=== PATIENT | male | born 1955 | race Caucasian/White ===

== ENCOUNTER → 2018-12-17 15:08 | Outpatient (CLI) | payer MEDICARE, SELFPAY ==
[2018-07-23 14:31] VITALS: BMI 35.0
[2018-12-17 16:21] LABS: Absolute Neutrophil Count 4.1 X10^3/uL (2.0-7.7); Basophil# 0.02 X10^3/uL; Basophil% 0.3 % (0-1); Eosinophil# 0.11 X10^3/uL; Eosinophils% 1.8 % (0-5); Hematocrit 46.6 % (40-54); Hemoglobin 16.5 g/dl (13.0-16.5); Lymphocyte % 21.2 % (19-41); Mean Corp Hgb Conc 35.4 g/gl (32-36); Mean Corpuscular Hgb 33.2 pg (27.0-32.0); Mean Corpuscular Volume 93.8 fL (80-94); Monocyte% 9.8 % (0-10); Neutrophil # 4.07 X10^3/uL (2.7-7.7); Neutrophil % 66.6 % (47-70); Platelet Count 232 K/mm3 (150-450); RBC Distribution Width SD 40.2 fl (35.1-43.9); Red Blood Count 4.97 M/mm3 (4.6-6.2); White Blood Count 6.1 K/mm3 (4.4-11.0)
[2018-12-17 16:27] LABS: POSITIVE COUNT NO; POSITIVE DIFFERENTIAL NO; POSITIVE MORPHOLOGY NO
== END ==
PROVIDERS: Family Provider Family Medicine; PCP Family Medicine; Referring Provider Family Medicine; Visit Provider Family Medicine
DX: E03.9 Hypothyroidism, unspecified (principal); R68.82 Decreased libido
CPT/HCPCS: 36415; 84403; 85025

== ENCOUNTER 2020-01-25 15:41 | Emergency (ER) | payer MEDICARE, SELFPAY ==
[2019-09-24 13:54] VITALS: BMI 33.7
[2020-01-25 15:42] VITALS: BP 131/81; PULSE 77; RESP 17; TEMP 36.5; O2SAT 96; BMI 33.7
--- NOTE | 2020-01-25 16:07 | EKG12_ITS ---
Test Reason : SOB Blood Pressure : / mmHG Vent. Rate : 070 BPM Atrial Rate : 070 BPM P-R Int : 148 ms QRS Dur : 080 ms QT Int : 392 ms P-R-T Axes : 041 020 041 degrees QTc Int : 423 ms Normal sinus rhythm Normal ECG Confirmed by KRISTINE LUNA MD ([id number]), editorial cartoonist ROB RIVERA ([id number]) on 01/29/2020 9:06:19 AM Referred By: MAXIMUS Confirmed By:KRISTINE LUNA MD
[2020-01-25 16:16] VITALS: BP 130/77; PULSE 70; RESP 18; O2SAT 95; O2SAT 97
[2020-01-25 16:32] LABS: Absolute Lymphocyte Count 1.06 X10^3/uL (0.83-4.51); Absolute Neutrophil Count 3.6 X10^3/uL (2.0-7.7); Basophil# 0.04 X10^3/uL; Basophil% 0.7 % (0-1); Eosinophil# 0.15 X10^3/uL; Eosinophils% 2.7 % (0-5); Hematocrit 43.1 % (40-54); Hemoglobin 15.2 g/dL (13.0-16.5); Lymphocyte # 1.06 X10^3/ul (4.0); Lymphocyte % 19.2 % (19-41); Mean Corp Hgb Conc 35.3 g/dL (32-36); Mean Corpuscular Hgb 32.6 pg (27.0-32.0); Mean Corpuscular Volume 92.5 fL (80-94); Mean Platelet Vol. 8.8 fl (6.2-12.0); Monocyte# 0.61 X10^3/uL; NRBC Flagged by Analyzer 0 % (0-5); Neutrophil # 3.62 X10^3/uL (2.7-7.7); Neutrophil % 65.5 % (47-70); Platelet Count 207 K/mm3 (150-450); RBC Distribution Width CV 11.7 % (11.6-14.6); Red Blood Count 4.66 M/mm3 (4.6-6.2); White Blood Count 5.5 K/mm3 (4.4-11.0)
--- NOTE | 2020-01-25 16:40 | RAD_ITS ---
STUDY: X-RAY CHEST REASON FOR EXAM: Male, 64 years old. patient complains of shortness of breath and weakness TECHNIQUE: PA and lateral views of the chest. COMPARISON: 07/06/2012 FINDINGS: The lungs are clear and expanded. There is no demonstrated pleural abnormality. Normal size heart. Normal mediastinum and talon. Normal visualized pulmonary arteries. Normal visualized aortic arch and descending thoracic aorta. Normal visualized thoracic spine. Normal visualized ribs, clavicles, and shoulders. There is no demonstrated abnormality of the visualized soft tissue structures of the upper abdomen. RAD/Chest PA and Lateral IMPRESSION: Normal x-ray examination of the chest. Electronically Signed: Clarence Stark MD at 16:52 EDT Tel , Service support ,
[2020-01-25 16:48] LABS: Anion Gap 6 (5-15); BUN 22 mg/dL (7-18); BUN/Creat Ratio 14.8 RATIO (10-20); Calcium,Total 8.3 mg/dL (8.5-10.1); Chloride 106 mmol/L (98-107); Creatinine, Serum 1.49 mg/dL (0.70-1.30); EST Glomerular Filtration Rate 50 mL/min (>60); Est Glom Filt Rate - Afr Amer 61 mL/min (>60); Glucose 169 mg/dL (74-106); Potassium 4.2 mmol/L (3.5-5.1); Sodium Level 135 mmol/L (136-145)
--- NOTE | 2020-01-25 16:52 | ED.DCSUM_ITS ---
History of Present Illness Chief Complaint: Shortness of Breath Informant: Patient Onset: Yesterday Activity at onset: Exertion, Light Activity Timing: Continuous Quality: Dyspnea on exertion Current Severity: Mild Maximum Severity: Severe Worsened by: Exertion Relieved by: Rest Associated Symptoms: Negative for: Bloody Sputum, Chills, Cough, Ear pain, Fever, Green sputum, Post-nasal drainage, Rhinorrhea, Sore throat, Sweats, White sputum, Yellow sputum Chest Pain: Tightness Narrative: 64-year-old male history of fibromyalgia presents to the emergency department with dyspnea on exertion and chest tightness. It has been worsening over the last 1 week but specifically over the last 24 hours. He does not get any chest pain with exertion. He has no cough or fever. He is not lightheaded or dizzy. He denies any nausea vomiting or diarrhea. He denies any recent travel or surgery, leg pain or swelling, hemoptysis or history of DVT or PE. He is a non- smoker. He is not hypertensive or does not have hyperlipidemia history. No family history of coronary disease. PE Risk Factors: Negative for: Cancer, OCP + Smoking + > 35, Prior DVT or PE, Recent immobilization, Recent surgery, Recent travel Prior similar symptoms: No Recent Illness/Hospitalization: No Past Medical History - Allergies and Home Meds Allergies/Adverse Reactions: Allergies milk Allergy (Verified 01/25/20 15:41) Upset Stomach Primary Care Physician: Phoenix Leiva DO [Primary Care Provider] - Prior records reviewed: Yes Past Medical History: - - Fibromyalgia Surgical History: no surgical history Lives: Alone Smoking Status: Never smoker Review of Systems All systems negative except as indicated General: Denies: Chills, Fever, Malaise Eyes: Denies: Visual changes - bilaterally, Blurred Vision - bilaterally, Diplopia ENT: Denies: Rhinorrhea, Sore throat Cardiovascular: Denies: Chest pain, Palpitations, Heart racing Respiratory: Reports: Dyspnea, Dyspnea on exertion. Denies: Cough, Sputum, Orthopnea, Paroxysmal nocturnal dyspnea Gastrointestinal: Denies: Abdominal pain, Nausea, Vomiting, Diarrhea, Constipation, Melena, Hematochezia Genitourinary: Denies: Dysuria, Hematuria, Frequency Musculoskeletal: Denies: Myalgias, Arthralgias, Swelling, Extremity Pain Skin: Denies: Rash, Abscess, Abrasions, Wounds Neurological: Denies: Headache, Weakness, Parasthesia, Numbness Hematologic: Denies: Easy bruising, Easy bleeding Physical Exam Vital Signs/Narrative: Vital Signs Temp Pulse Resp BP Pulse Ox 01/25/20 16:16 70 18 130/77 H 95 01/25/20 15:42 97.7 F L 77 17 131/81 H 96 Inital Vital Signs reviewed: Yes General: Well nourished, Well developed, No Acute Distress Head: Normocephalic, Atraumatic Eyes: Perrl, EOMI ENT: Moist mucous membranes Neck: Supple, Nontender, No lymphadenopathy, No JVD Cardiovascular: Regular rate, Regular rhythm, No murmurs Respiratory: No distress, CTA bilaterally, Chest nontender Abdomen: Soft, Nontender, Nondistended, Normal bowel sounds, No masses Back: Nontender, Normal Inspection Extremities: Nontender, No edema Skin: Normal color, No rash Neurological: Alert, Oriented x3 Psychological: Normal affect, Normal Mood Diagnostic/Tx/Re-eval Chest X-Ray - ED: 2 View, Read by ED Physician, Read by Radiologist, No Acute Disease - Rhythm Strip Rhythm Strip: Sinus Rhythm Rate: 77 Ectopy: None - EKG Initial EKG Interpretation: Sinus Rhythm, No Acute Injury Pattern Prior: Unchanged With Ambulation: Asymptomatic - Medical Decision Making EKG was sinus rhythm. Rate of 70 bpm. Normal intervals. No ST segment or T wave changes. It is unchanged from his previous EKG. Patient's laboratory work-up included CBC, BMP and troponin. Unremarkable. Chest x-ray unremarkable as well. Repeat exam symptom free. Heart score is two. He has had symptoms for 1 week. Discharge for outpatient follow-up ED Disposition - Plan for ED Patient: Disposition: Home or Assisted Living Diagnosis: Dyspnea on exertion Instructions: ED Dyspnea Prescriptions: Albuterol Inhaler [Ventolin Hfa] 1 - 2 puff INHALATION Q4H PRN PRN #1 inhaler PRN Reason: Wheezing Prescription Printed Referrals: Phoenix Leiva DO [Primary Care Provider] -
[2020-01-25 17:51] VITALS: BP 130/70; PULSE 72; RESP 14; O2SAT 97
== END 2020-01-25 17:52 | disposition home or self-care (01) ==
PROVIDERS: Emergency Provider Physician Assistant Medical; PCP Family Medicine
DX: R06.09 Other forms of dyspnea (principal)
CPT/HCPCS: 71046; 80048; 84484; 85025; 93005; 99284; A4216

== ENCOUNTER → 2020-09-10 16:38 | Outpatient (CLI) | payer MEDICARE, SELFPAY ==
[2020-08-04 15:32] VITALS: BMI 33.7
[2020-09-10 18:16] LABS: Anion Gap 8 (5-15); BUN 25 mg/dL (7-18); BUN/Creat Ratio 17.1 RATIO (10-20); Calcium,Total 8.4 mg/dL (8.5-10.1); Chloride 108 mmol/L (98-107); Creatinine, Serum 1.46 mg/dL (0.70-1.30); EST Glomerular Filtration Rate 51 mL/min (>60); Est Glom Filt Rate - Afr Amer 62 mL/min (>60); Glucose 108 mg/dL (74-106); Potassium 4.5 mmol/L (3.5-5.1); Sodium Level 138 mmol/L (136-145)
== END ==
PROVIDERS: PCP Family Medicine; Referring Provider Family Medicine; Visit Provider Family Medicine
DX: R39.198 Other difficulties with micturition (principal)
CPT/HCPCS: 36415; 80048

== ENCOUNTER → 2020-09-17 14:21 | Outpatient (CLI) | payer MEDICARE, SELFPAY ==
[2020-08-04 15:32] VITALS: BMI 33.7
[2020-09-17 15:54] LABS: PSA,Total- Diagnostic 3.73 ng/mL (0.0-4.0)
== END ==
LOC: BIMLAB 14:22
PROVIDERS: PCP Family Medicine; Referring Provider Family Medicine; Visit Provider Family Medicine
DX: R39.198 Other difficulties with micturition (principal)
CPT/HCPCS: 36415; 84153

== ENCOUNTER → 2020-09-30 17:29 | Outpatient (CLI) | payer MEDICARE, SELFPAY ==
[2020-08-04 15:32] VITALS: BMI 33.7
== END ==
PROVIDERS: PCP Family Medicine; Referring Provider Nurse Practitioner Family; Visit Provider Nurse Practitioner Family
DX: R52 Pain, unspecified (principal)
CPT/HCPCS: 87635; 87804; C9803; U0003

== ENCOUNTER → 2021-01-12 15:36 | Outpatient (CLI) | payer MEDICARE, SELFPAY ==
[2021-01-12 15:00] VITALS: BMI 35.3
[2021-01-12 17:21] LABS: Vitamin D,25 Hydroxy 31.6 ng/mL
[2021-01-12 17:33] LABS: ALB/GLOB Ratio 1.1 RATIO (0.9-2.4); AST(SGOT) 30 U/L (15-37); Alanine Aminotransfer ALT/SGPT 57 U/L (16-61); Albumin, Serum 3.8 g/dL (3.2-5.0); Alkaline Phosphatase 95 U/L (45-117); Anion Gap 6 (5-15); BUN 23 mg/dL (7-18); BUN/Creat Ratio 14.6 RATIO (10-20); Calcium,Total 9.1 mg/dL (8.5-10.1); Chloride 106 mmol/L (98-107); Cholesterol 192 mg/dL (200); Creatinine, Serum 1.58 mg/dL (0.70-1.30); EST Glomerular Filtration Rate 47 mL/min (>60); Est Glom Filt Rate - Afr Amer 57 mL/min (>60); Globulin 3.4 g/dL (2.2-4.2); Glucose 185 mg/dL (74-106); High Density Lipoprotein 33 mg/dL; Potassium 4.5 mmol/L (3.5-5.1); Protein, Total 7.2 g/dL (6.4-8.2); Sodium Level 137 mmol/L (136-145); Triglycerides 524 mg/dL
== END ==
PROVIDERS: PCP Family Medicine; Referring Provider Family Medicine; Visit Provider Family Medicine
DX: E03.9 Hypothyroidism, unspecified (principal); F32.9 Major depressive disorder, single episode, unspecified; E20.9 Hypoparathyroidism, unspecified
CPT/HCPCS: 36415; 80053; 80061; 82306

== ENCOUNTER → 2021-01-21 15:52 | Outpatient (CLI) | payer MEDICARE, SELFPAY ==
[2021-01-12 15:00] VITALS: BMI 35.3
[2021-01-21 17:04] LABS: Hemoglobin A1c 5.4 % (3.8-5.6)
== END ==
PROVIDERS: PCP Family Medicine; Visit Provider Family Medicine
DX: R73.09 Other abnormal glucose (principal)
CPT/HCPCS: 36415; 83036

== ENCOUNTER → 2021-09-07 | Outpatient (CLI) | payer MEDICARE, SELFPAY | END | disposition home or self-care (01) | LOC: LABSPEC 14:27 | PROVIDERS: PCP Family Medicine; Referring Provider Nurse Practitioner Family; Visit Provider Nurse Practitioner Family | DX: R52 Pain, unspecified (principal) | CPT/HCPCS: 87635; U0005; U0003 ==

== ENCOUNTER 2021-12-06 14:41 | Outpatient (CLI) | payer MEDICARE, SELFPAY ==
--- NOTE | 2021-12-06 14:53 | ECHOCS_ITS ---
Reason For Study: DYSPNEA Procedure This was a 2D Doppler, Color Flow transthoracic echocardiogram. The study was technically difficult. Contrast injection was performed. Exam performed in department. Left Ventricle Normal LV size. Left ventricular systolic function is normal. The estimated ejection fraction is 55 %. Diastolic function is indeterminate. No regional wall motion abnormalities noted. Right Ventricle Normal RV size. Normal systolic function. Atria Normal left atrium. Normal right atrium. No doppler evidence for ASD. Mitral Valve There is no mitral annular calcification. Normal mitral valve. Mild (1+) mitral valve insufficiency. Tricuspid Valve Normal tricuspid valve. Mild tricuspid valve insufficiency. Right ventricular systolic pressure estimated to be 29 mmHg. Aortic Valve Trisinus/trileaflet aortic valve. Mild focal aortic valve thickening. Pulmonic Valve The pulmonic valve is not well visualized. Great Vessels Normal sized aortic root. Pericardium/Pleural No pericardial effusion. Medication 22 gauge I.V. with prn adaptor inserted into right arm. Diluted definity 4.0ml given slow IV push to enhance endocardial definition. MMode/2D Measurements & Calculations LVIDd: 4.1 cm IVSd: 0.82 cm Ao root diam: 3.8 cm LVIDs: 2.9 cm LVPWd: 0.91 cm RVDd: 3.0 cm FS: 29.4 % LAV(MOD-bp): 35.5 ml LA A4 area: 15.2 cm2 LA dimension(2D): 3.9 cm LAV(MOD-bp) Indexed: 17.4 ml/m2 LAV(MOD-sp2): 30.4 ml LAV(MOD-sp4): 34.0 ml RA A4 area: 10.9 cm2 Doppler Measurements & Calculations MV E max marcin: 91.4 cm/sec Lat Peak E' Marcin: 9.0 cm/sec Med Peak E' Marcin: 5.7 cm/sec MV A max marcin: 98.6 cm/sec E/E' lat: 10.1 E/E' med: 15.9 MV E/A: 0.93 Ao V2 max: 136.9 cm/sec LV V1 max: 100.0 cm/sec TR max marcin: 245.4 cm/sec Ao max P.5 mmHg LV V1 max P.0 mmHg TR max P.1 mmHg ECHO/Echo Complete W/ Contrast Interpretation Summary The study was technically difficult. Contrast injection was performed. Left ventricular systolic function is normal. The estimated ejection fraction is 55 %. Mild (1+) mitral valve insufficiency. Mild tricuspid valve insufficiency. Mild focal aortic valve thickening. Right ventricular systolic pressure estimated to be 29 mmHg. Diastolic function is indeterminate. Ordering Physician: Gavin Ortiz Referring Physician: ABIOLA LADD Performed By: Bibiana Edmonds, ROBERT, RVT
== END 2021-12-06 23:59 | disposition short-term general hospital (02) ==
PROVIDERS: PCP Family Medicine; Referring Provider Nurse Practitioner Family; Visit Provider Nurse Practitioner Family
DX: R06.00 Dyspnea, unspecified (principal)
CPT/HCPCS: 93306; Q9957; A4216; C8929

== ENCOUNTER → 2022-05-05 | Outpatient (CLI) | payer MEDICARE, SELFPAY ==
[2022-05-05 16:53] LABS: ALB/GLOB Ratio 1.2 RATIO (0.9-2.4); AST(SGOT) 28 U/L (15-37); Alanine Aminotransfer ALT/SGPT 39 U/L (16-61); Albumin, Serum 3.9 g/dL (3.2-5.0); Alkaline Phosphatase 99 U/L (45-117); Anion Gap 7 (5-15); BUN 16 mg/dL (7-18); BUN/Creat Ratio 10.5 RATIO (10-20); Calcium,Total 8.8 mg/dL (8.5-10.1); Chloride 104 mmol/L (98-107); Creatinine, Serum 1.52 mg/dL (0.70-1.30); EST Glomerular Filtration Rate 49 mL/min (>60); Est Glom Filt Rate - Afr Amer 59 mL/min (>60); Globulin 3.2 g/dL (2.2-4.2); Glucose 125 mg/dL (74-106); Potassium 4.6 mmol/L (3.5-5.1); Protein, Total 7.1 g/dL (6.4-8.2); Sodium Level 137 mmol/L (136-145)
[2022-05-05 16:57] LABS: Absolute Lymphocyte Count 1.49 X10^3/uL (0.83-4.51); Absolute Neutrophil Count 4.4 X10^3/uL (2.0-7.7); Basophil# 0.05 X10^3/uL; Basophil% 0.7 % (0-1); Eosinophil# 0.26 X10^3/uL; Eosinophils% 3.7 % (0-5); Hematocrit 47.4 % (40-54); Hemoglobin 16.4 g/dL (13.0-16.5); Lymphocyte # 1.49 X10^3/ul (0.83-4.51); Lymphocyte % 21.2 % (19-41); Mean Corp Hgb Conc 34.6 g/dL (32-36); Mean Corpuscular Volume 92.4 fL (80-94); Mean Platelet Vol. 9.1 fl (6.2-12.0); Monocyte# 0.77 X10^3/uL; NRBC Flagged by Analyzer 0 % (0-5); Neutrophil # 4.42 X10^3/uL (2.7-7.7); Platelet Count 253 K/mm3 (150-450); RBC Distribution Width CV 11.8 % (11.6-14.6); RBC Distribution Width SD 39.8 fl (35.1-43.9); Red Blood Count 5.13 M/mm3 (4.6-6.2)
[2022-05-05 17:48] LABS: Cholesterol 177 mg/dL (200); High Density Lipoprotein 33 mg/dL; PSA,Total - Annual Screen 3.46 ng/mL (0.00-4.00); Thyroid Stim Hormone (TSH) 2.85 uIU/mL (0.358-3.74); Triglycerides 389 mg/dL; Very Low Density Lipoprotein 78 mg/dL (5-40)
== END | disposition home or self-care (01) ==
LOC: BIMLAB 15:31
PROVIDERS: Nurse Practitioner Family; PCP Family Medicine; Referring Provider Family Medicine; Visit Provider Family Medicine
DX: C44.91 Basal cell carcinoma of skin, unspecified (principal); R06.00 Dyspnea, unspecified; R53.83 Other fatigue; N18.2 Chronic kidney disease, stage 2 (mild); E03.9 Hypothyroidism, unspecified; Z12.5 Encounter for screening for malignant neoplasm of prostate; F32.9 Major depressive disorder, single episode, unspecified
CPT/HCPCS: 36415; 80053; 80061; 84153; 84443; 85025; G0103

== ENCOUNTER → 2024-07-07 | Outpatient (CLI) | payer MEDICARE, SELFPAY ==
--- NOTE | 2024-07-07 12:01 | EKG12_ITS ---
Test Reason : PRE OP Blood Pressure : / mmHG Vent. Rate : 089 BPM Atrial Rate : 089 BPM P-R Int : 136 ms QRS Dur : 076 ms QT Int : 350 ms P-R-T Axes : 036 010 050 degrees QTc Int : 425 ms Sinus rhythm with occasional Premature ventricular complexes Otherwise normal ECG Confirmed by Mauro Flores ([id number]), marketing editor HEMA LANGE ([id number]) on 07/07/2024 1:54:46 PM Referred By: Michael Mckeon Confirmed By:Mauro Flores
[2024-07-07 12:55] LABS: Hematocrit 46.5 % (40-54); Hemoglobin 16.1 g/dL (13.0-16.5); Mean Corp Hgb Conc 34.6 g/dL (32-36); Mean Corpuscular Hgb 30.7 pg (27.0-32.0); Mean Corpuscular Volume 88.7 fL (80-94); Mean Platelet Vol. 8.9 fl (6.2-12.0); Platelet Count 250 K/mm3 (150-450); RBC Distribution Width SD 38.8 fl (35.1-43.9); Red Blood Count 5.24 M/mm3 (4.6-6.2); White Blood Count 7.3 K/mm3 (4.4-11.0)
[2024-07-07 13:26] LABS: Anion Gap 7 (5-15); BUN 22 mg/dL (7-18); BUN/Creat Ratio 13.8 RATIO (10-20); Calcium,Total 9.3 mg/dL (8.5-10.1); Chloride 108 mmol/L (98-107); Creatinine, Serum 1.59 mg/dL (0.70-1.30); EST Glomerular Filtration Rate 46 mL/min (>60); Est Glom Filt Rate - Afr Amer 56 mL/min (>60); Glucose 114 mg/dL (74-106); Potassium 4.2 mmol/L (3.5-5.1); Sodium Level 139 mmol/L (136-145)
== END | disposition home or self-care (01) ==
PROVIDERS: PCP Family Medicine; Referring Provider Otolaryngology; Visit Provider Otolaryngology
DX: Z01.810 Encounter for preprocedural cardiovascular examination (principal); Z01.812 Encounter for preprocedural laboratory examination
CPT/HCPCS: 36415; 80048; 84403; 85027; 93005

== ENCOUNTER → 2025-04-22 | Outpatient (CLI) | payer MEDICARE, SELFPAY ==
--- NOTE | 2025-04-22 14:41 | NEURO ---
NCS and/or EMG Patient Report Ordering Doctor: Naldo Angeles DATE OF SERVICE: 04/22/25 Reid presents for electrodiagnostic testing of the right upper limb. He reports numbness in the right fifth digit and medial aspect of the hand. Electrodiagnostic findings: Right median motor nerve demonstrates normal distal latency, amplitude and conduction velocity. Right ulnar motor nerve demonstrates normal distal latency and amplitude with a drop in conduction across the elbow. Prolonged right ulnar F?wave. Sensory responses are within normal limits. Needle EMG testing was performed the right upper limb. All muscles tested showed no evidence of denervation with normal motor unit action potentials. Electrodiagnostic impression: This is an abnormal study in the right upper limb. 1. Electrodiagnostic findings suggestive of right-sided ulnar neuropathy. This is consistent with a moderate to advanced right cubital tunnel syndrome. 2. No electrodiagnostic evidence is noted for median neuropathy, i.e. carpal tunnel syndrome. 3. No electrodiagnostic evidence is noted for cervical radiculopathy Multi Select Codes Neurology Neurology Interp Codes: 42490-84 Musc test done w/n test comp (interp) and 98044-89 Nrv cndj tst 5-6 studies (interp)
--- OUTSIDE RECORDS SUMMARY | 2025-04-22 21:33 | XMS RPT_ITS | CCD ---
Author Organization [facility] Care Team Providers Care Program Consultant Name Role Phone REUBEN AMES Attending Unavailable REUBEN AMES Primary Care Unavailable REUBEN AMES Admitting Unavailable ABIOLA LEIVA DO R Primary Care Physician Dr. Abiola Leiva Primary Care Provider Dr. Abiola Leiva Attending Provider [phone] Dr. Abiola Leiva Referring Provider [phone] ABIOLA LEIVA DO Primary Care Physician AMARILIS SALGUERO DO Attending Unavailable BROWN DO, ABIOLA R Primary Care Unavailable BROWN DO, ABIOLA R Attending Unavailable BROWN DO, ABIOLA R Primary Care Unavailable BROWN DO, ABIOLA R Attending Unavailable BROWN DO, ABIOLA R Primary Care Unavailable BARBARA MORENO, DUONG Campuzano Attending Unavail able BROWN DO, ABIOLA R Primary Care Unavailable Brown, Abiola R Referring Unavailable Brown, Abiola R Attending Unavailable Brown, Abiola R Primary Care Unavailable Brown, Abiola R Attending Unavailable Brown, Abiola R Primary Care Unavailable Gerardo Mckeon Referring UnavailMauro Hill Attending Unavailable Brown, Abiola R Primary Care Unavailable Brown, Abiola R Primary Care Unavailable Gerardo Mckeon Referring UnavailGerardo Alberts Attending Unavailabl e Brown, Abiola R Primary Care Unavailable Brown, Abiola R Referring Unavailable Naldo Angeles Attending Unavailable Brown, Abiola R Referring Unavailable Brown, Abiola R Attending Unavailable Brown, Abiola R Primary Care Unavailable Allergies Allergy Classification Reported Allergen(s) Allergy Type Date of Onset Reaction(s) Facility (1 source) cow milk allergenic extract Drug Allergy 04-12-2022 Upset Stomach [facility] Work Phone: (1 source) Milk Drug allergy (disorder) 03-23-2025 [facility] Repository Medications Current Medications Medication Drug Class(es) Dates Sig (Normalized) Sig (Original) [id number] 200 actuat albuterol 0.09 mg/actuat metered dose inhaler (5 sources) beta2-Adrenergic Agonist Start: 01-25-2020 End: 04-12-2022 take 1 puff(s) by inhalation every four hours as needed Albuterol Sulfate Active 1 - 2 PUFF INHALATION EVERY 4 HOURS NEEDED April 12, 2022 3:14pm albuterol MDI (90 mcg/inh) CFC free inhalation aerosol (1 source) Start: 11-28-2024 End: 12-28-2024 take 1 puff(s) by inhalation every six hours as needed for wheezing albuterol MDI (90 mcg/inh) CFC free inhalation aerosol 1 puff(s), Inhalation, q6hr, PRN as needed for wheezing, # 6.7 gram(s), 0 Refill(s) Start Date: 11/28/24 Stop Date: 12/28/24 Status: Ordered Quantity: 6.7 Unit: g Repeat number: 1 clonazePAM 1 mg oral tablet (13 sources) Benzodiazepine Start: 05-30-2017 End: 04-12-2022 take 1 mg by mouth at bedtime Clonazepam Active 1 MG PO AT BEDTIME April 12, 2022 3:15pm DULoxetine 30 mg delayed release oral capsule (3 sources) Serotonin and Norepinephrine Reuptake Inhibitor Start: 11-09-2021 End: 04-12-2022 take 30 mg by mouth once daily Duloxetine Active 30 MG PO DAILY April 12, 2022 3:15pm Multivitamin preparation (1 source) Start: 05-30-2017 Multivitamin Active 1 EACH PO DAILY May 30, 2017 12:00am naproxen sodium 220 mg oral capsule (1 source) Nonsteroidal Anti-inflammatory Drug Start: 04-03-2018 take 1 capsule by mouth twice daily Naproxen Sodium (Aleve) 220 mg capsule Active 220 MG PO TWICE A DAY April 03, 2018 12:00am Completed/Discontinued Medications Medication Drug Class(es) Dates Sig (Normalized) Sig (Original) amoxicillin 500 mg oral capsule (1 source) Penicillin-class Antibacterial Start: 07-23-2018 End: 02-12-2019 take 500 mg by mouth three times daily Amoxicillin Discontinued 500 MG PO THREE TIMES A DAY July 23, 2018 12:00am February 12, 2019 3:27pm cholecalciferol 0.025 mg oral capsule (1 source) Vitamin D Start: 02-12-2019 End: 09-24-2019 take 1 capsule by mouth once daily cholecalciferol (vitamin D3) 1,000 unit capsule Discontinued 1000 UNIT PO DAILY February 12, 2019 12:00am September 24, 2019 2:53pm citalopram 20 mg oral tablet (8 sources) Serotonin Reuptake Inhibitor Start: 05-30-2017 End: 11-09-2021 take 20 mg by mouth once daily Citalopram Discontinued 20 MG PO DAILY July 20, 2021 3:29pm November 09, 2021 4:18pm crotamiton 100 mg/ml topical cream (1 source) Start: 07-20-2021 End: 07-20-2021 Crotamiton (Eurax) 10 % cream Discontinued 1 APPLIC TOPICAL DAILY 60 2 July 20, 2021 12:00am July 20, 2021 3:50pm cyclobenzaprine hydrochloride 10 mg oral tablet (1 source) Muscle Relaxant Start: 04-03-2018 End: 07-23-2018 take 10 mg by mouth three times daily Cyclobenzaprine Discontinued 10 MG PO THREE TIMES A DAY April 03, 2018 12:00am July 23, 2018 2:34pm meclizine hydrochloride 12.5 mg oral tablet (1 source) Antiemetic Start: 05-18-2021 End: 07-20-2021 take 12.5 mg by mouth three times daily Meclizine Discontinued 12.5 MG PO THREE TIMES A DAY May 18, 2021 12:00am July 20, 2021 3:16pm permethrin 50 mg/ml topical cream (1 source) Pyrethroid Start: 07-20-2021 End: 04-12-2022 Permethrin Discontinued 1 APPLIC TOPICAL Q14D 60 July 20, 2021 12:00am April 12, 2022 3:08pm apply second treatment 14 days after first treatment if live lice remain testosterone cypionate 200 mg/ml injectable solution (4 sources) Androgen Start: 04-03-2018 End: 09-24-2019 inject 100 mg by intramuscular injection every week Testosterone Cypionate Discontinued 100 MG IM EVERY WEEK February 12, 2019 3:53pm September 24, 2019 3:02pm Start: 05-30-2017 End: 04-03-2018 Testosterone Discontinued Ju ly 2016 12:00am April 03, 2018 7:33am Problems Problem Classification Problem Date Documented Da te Episodic/Chronic Abdominal hernia (1 source) Umbilical hernia; Translations: [Umbilical hernia without obstruction or gangrene] Episodic Chronic kidney disease (2 sources) Chronic kidney disease stage 2; Translations: [Chronic kidney disease, stage 2 (mild)] Chronic Malaise and fatigue (1 source) Fatigue; Translations: [Other fatigue] Episodic Mood disorders (2 sources) Depressive disorder; Translations: [Depressive disorder] Chronic Other connective tissue disease (1 source) Fibromyositis; Translations: [Fibromyalgia] Episodic Other connective tissue disease (1 source) Fibromyalgia; Translations: [Myalgia and myositis, unspecified] Episodic Other inflammatory condition of skin (1 source) Pruritus, unspecified; Translations: [Pruritus of both hands] Episodic Other lower respiratory disease (1 source) Dyspnea on exertion; Translations: [Dyspnea, unspecified] Episodic Other lower respiratory disease (1 source) Dyspnea; Translations: [Dyspnea, unspecified] Episodic Other nervous system disorders (1 source) Lesion of ulnar nerve, right upper limb; Translations: [Lesion of ulnar nerve, right upper limb] Onset: 03-23-2025 Chronic Other non-epithelial cancer of skin (1 source) Basal cell carcinoma of skin; Translations: [Basal cell carcinoma of skin, unspecified] Episodic Residual codes; unclassified (1 source) Generalized aches and pains; Translations: [Pain, unspecified] Episodic Residual codes; unclassified (1 source) Reduced libido; Translations: [Decreased libido] Episodic Thyroid disorders (1 source) Hypothyroidism; Translations: [Hypothyroidism, unspecified] Chronic Results Test Name Value Interpretation Reference Range Facility Orthopedic Visit Reporton Orthopedic Visit Report [facility] [address] [place] [id number] OFFICE VISIT Date of Service: 03/23/25 MR#: [id number] Acct: [id number] Name: QUENTIN GRIFFIN Rep #: [id number] : 1955 Provider: Dr. Naldo cooney MD Age/Sex: 69/M Location: [facility] Status: Signed Intake Vital Signs 10/22/24 16:02 03/16/25 13:01 03/23/25 14:27 Height 5 ft 6 in 5 ft 6 in 5 ft 6 in Weight: 228 lb 210 lb BMI 36.8 33.9 BP 128/84 H Blood Pressure Location Lt brachial Position Sitting Respiration 16 Pulse 66 Pulse Source Monitor Temp 97.9 F Temp Source Temporal Pulse Oximetry (%) 99 Oxygen Delivery Method room air Intake Visit Reasons: RIGHT HAND Chief Complaint: Right hand Accompanied by: Self Is patient in pain?: No Allergies milk Allergy (Verified 03/23/25 14:29) Upset Stomach Medications ???Medication ???Instructions ???Recorded ???Confirmed ???Type clonazepam 2 mg tablet 2 mg PO QHS #30 tabs 10/22/2403/12 Rx Have you fallen in the past year?: No PFSH Medical History (Updated 03/23/25 @ 14:50 by Naldo Angeles MD) Cubital tunnel syndrome on right De Quervain's tenosynovitis, left Fatigue Dyspnea Body aches Hypothyroid Reduced libido Fibromyositis Umbilical hernia Depressive disorder Basal cell carcinoma Surgical History History of cataract removal with insertion of prosthetic lens Family History Grandmother Heart disease Uncle Diabetes Father Liver disease Mother Alzheimer's dementia Son Colon cancer Social History Smoking Status: Never smoker alcohol intake: current alcohol intake frequency: holidays/special occasions only substance use type: does not use what type of physical activity do you participate in: none HPI RIGHT HAND Details: This documentation accurately reflects the service provided and the decisions made by me, Dr. Naldo Angeles MD 03/23/25 1026. Part of today???s visit was documented by [ ], acting as scribe. QUENTIN GRIFFIN is a 69 year old M here today for right hand numbness. 5 months. 5th digit only numb, tracking up the hand. RHD. had injection on the left side. those are working well. no NCS. no tx. not getting better. into the palm. like when bumped elbow Coding Level of Care Code Off vis,est,level 4 Diagnoses Cubital tunnel syndrome on right G56.21 Assessment and Plan Assessment and Plan (1) Cubital tunnel syndrome on right: Status: Acute Plan: 69-year-old man with a right elbow cubital tunnel syndrome possibly Guyon's canal ... this seems like a ulnar nerve compression syndrome peripheral neuropathy. Explained the diagnosis prognosis different treatment options for now patient will try anti-inflammatories and bracing but I will go ahead and order nerve conduction study/EMG of the right upper extremity to try to localize this as the physical exam findings were equivocal. Follow-up after the test. Carpal / cubital Tunnel Syndrome (CTS) occurs when the median or ulnar nerve, which runs through the wrist and elbow, becomes compressed. Treatment options vary based on the severity of the condition: Non-Surgical Treatments: Wrist Splinting: Wearing a splint at night to keep the wrist in a neutral position. Activity Modification: Avoiding repetitive wrist movements or adjusting work habits. Physical Therapy: Exercises to improve wrist and hand function. Medications: Anti-inflammatory drugs (NSAIDs) or corticosteroid injections to reduce swelling and pain. Surgical Treatment: Carpal / cubital Tunnel Release Surgery: A procedure where the ligament pressing on the median / ulnar nerve is cut to relieve pressure. This is considered when non-surgical treatments are ineffective. Options are min-open or endoscopic. Clinical Quality Measures Falls Risk Screening/Assistive Devices Have you fallen in the past year?: No Ortho Exam General General: Yes no acute distress Neurologic: Yes alert and Yes oriented x3 Psychologic: Yes reasonable and appropriate Right Wrist/Hand Skin/Wound: Yes CDI, No Swelling, No Ecchymosis, Yes nail intact and Yes capillary refill normal Motor: EPL: 5, FDP-2: 5, 1st Dorsal Interosseous: 5 and APB: 5 Sensation: Radial: I, Ulnar: D and Median: I WRIST: Mild Dupuytren's contracture at the palm of the left fourth digit. Negative Tinel's over Guyon's canal negative Tinel's over the median nerve negative Tinel's at the elbow. Negative compression test negative elbow flexion test negative Durkan's and Phalen's test at the wrist. Negative Wartenberg's sign. Strong fifth finger abdu (more content not included)... Normal [facility] CVFLURVon 11-28-2024 FLU A PCR Positive Abnormal Negative [facility] Comment on above: Performed By: #### C VFLURV #### [place] [address] FLU B PCR Negative Normal Negative [facility] Comment on above: Performed By: #### C VFLURV #### [place] [address] RSV PCR Negative Normal Negative [facility] Comment on above: Performed By: #### C VFLURV #### [place] [address] SARS-CoV-2 (COVID-19) RNA YISSEL+probe Ql (Unsp spec) Negative Normal Negative [facility] Comment on above: Result Comment: Resu lts from the Xpert Xpress CoV-2/Flu/RSV plus test should be correlated with the clinical history, epidemiological data, and other data available to the clinical evaluating the patient. Performance of the Xpert Xpress CoV-2/Flu/RSV plus test has only been established in nasopharyngeal swab specimen. Erroneous test results might occur from improper specimen collection, failure to follow the recommended sample collection, handling and storage procedures, technical error, or sample mix-up. False negative results may occur if a virus is present at a level below the analytical limit of detection. Viral nucleic acid may persist in vivo, independent of virus viability. Detection of analyte target(s) does not imply that the corresponding virus(es) are infectious or are the causative agents for clinical symptoms. Recent patient exposure to FluMist or other live attenuated influenza vaccines may cause inaccurate positive results. Performed By: #### C VFLURV #### [place] [address] LABORATORYOrdered By: Héctor Ramirez on 11-28-2024 FLUAV RNA YISSEL+probe Ql (Resp) Positive *ABN* (11/28/24 1:39 PM) Invalid Interpretation Code Negative AO Auto Urine SS FLUBV RNA YISSEL+probe Ql (Resp) Negative (11/28/24 1:39 PM) Normal Negative AO Auto Urine SS RSV RNA YISSEL+probe Ql (Resp) Negative (11/28/24 1:39 PM) Normal Negative AO Auto Urine SS SARS-CoV-2 (COVID-19) RNA YISSEL+probe Ql (Resp) Negative 1 (11/28/24 1:39 PM) Normal Negative AO Auto Urine SS Comment on above: Interpretive Data: R esults from the Xpert Xpress CoV-2/Flu/RSV plus test should be correlated with the clinical history, epidemiological data, and other data available to the clinical evaluating the patient. Performance of the Xpert Xpress CoV-2/Flu/RSV plus test has only been established in nasopharyngeal swab specimen. Erroneous test results might occur from improper specimen collection, failure to follow the recommended sample collection, handling and storage procedures, technical error, or sample mix-up. False negative results may occur if a virus is present at a level below the analytical limit of detection. Viral nucleic acid may persist in vivo, independent of virus viability. Detection of analyte target(s) does not imply that the corresponding virus(es) are infectious or are the causative agents for clinical symptoms. Recent patient exposure to FluMist or other live attenuated influenza vaccines may cause inaccurate positive results. XR CHEST 1 VIEWon 11-28-2024 XR CHEST 1 VIEW ORIGINAL EXAMINATION: ONE XRAY VIEW OF THE CHEST 11/28/2024 2:30 pm COMPARISON: None. HISTORY: ORDERING SYSTEM PROVIDED HISTORY: Reason for Exam: SOB/cough/fever FINDINGS: Low lung volumes and hypoventilatory changes. No overt edema. Questionable vague left retrocardiac opacification obscuring the left hemidiaphragm. No pleural effusion. No pneumothorax. No acute fracture. IMPRESSION: Questionable vague left retrocardiac opacification obscuring the left hemidiaphragm, this could be related to prominent pericardial fat versus a left basilar infiltrate. Interpreted by: Ju Grimm Preliminary Report By: Ju Grimm Electronically signed By Ju Grimm Dictated Date: 11/28/2024 2:32:37 PM Prelim Date: 11/28/2024 2:35:00 PM Sign Date: 11/28/2024 2:35:00 PM Ordering Provider: FADI Boothe [facility] Internal Medicine Office Vis ly 10-22-2024 Internal Medicine Office Visit [facility] [address] [place] [address] [place] [address] OFFICE VISIT Date of Service: 10/22/24 MR#: [id number] Acct: [id number] Name: QUENTIN GRIFFIN Rep #: [id number] : 1955 Provider: Dr. Abiola ramsey, DO Age/Sex: 68/M Location: [facility] Status: Signed Intake Vital Signs 03/19/24 15:57 10/22/24 16:02 Height 5 ft 6 in 5 ft 6 in Weight: 217 lb 228 lb BMI 35.0 36.8 BP 120/80 128/84 H Blood Pressure Location Lt brachial Lt brachial Position Sitting Sitting Respiration 14 16 Pulse 70 66 Pulse Source Monitor Monitor Temp 97.3 F L 97.9 F Temp Source Temporal Temporal Pulse Oximetry (%) 96 99 Oxygen Delivery Method room air room air Intake Visit Reasons: fu Climatologist Required: No Is patient in pain?: No Allergies milk Allergy (Verified 10/22/24 15:56) Upset Stomach Medications ???Medication ???Instructions ???Recorded ???Confirmed ???Type clonazepam 2 mg tablet 2 mg PO QHS #30 tabs 10/22/24 10/22/24 Rx Have you fallen in the past year?: No Nurse's Note: Would like zolpidem dose to 20mgs as he has not been sleeping well. [facility] Medical History De Quervain's tenosynovitis, left Fatigue Dyspnea Body aches Hypothyroid Reduced libido Fibromyositis Umbilical hernia Depressive disorder Basal cell carcinoma Surgical History History of cataract removal with insertion of prosthetic lens Family History Grandmother Heart disease Uncle Diabetes Father Liver disease Mother Alzheimer's dementia Son Colon cancer Social History Smoking Status: Never smoker alcohol intake: current alcohol intake frequency: holidays/special occasions only substance use type: does not use what type of physical activity do you participate in: none HPI HPI Details: QUENTIN GRIFFIN, is a 68 M who presents to the office today for some medication to help him sleep. He has stopped all of his other medications and really is not having any trouble with depression being off is in the depressant. He is still recovering emotionally from the loss of his son but is being supported by a lot of friends and really seems to have good insight into the way he feels and what he needs to do to maintain his mental health. ROS Const Constitutional: No body ache, chills, excessive sweating, fatigue, fever(s), frequent falls, headache(s), snoring, weakness, sleep problems or change in appetite Eyes Eyes: No blurry vision, change in vision, eye pain or Light sensitivity ENT ENT: No abnormal hearing, ear or mastoid pain, tinnitus, nasal congestion, headache(s), neck pain or sore throat Resp Respiratory: No cough, shortness of breath, snoring or wheezing Cardio Cardiology: No chest pain at rest, chest pain with exertion, excessive sweating, shortness of breath, dyspnea on exertion, lightheadedness, orthopnea or palpitations Gastro GI: No abdominal pain, change in bowel habits, constipation, cramping, diarrhea, nausea/dyspepsia or vomiting Genitourinary Male: No burning urination, painful urination, urinary incontinence or urinary frequency Musc Musculoskeletal: No abnormal gait, joint pain, back pain, limited range of motion, neck pain or numbness Skin Skin: No dry skin, redness, lesions, itchy eyes, rash or wounds Neuro Neurology: No abnormal gait, abnormal hearing, weakness, frequent falls, headache(s), memory loss or numbness Psych Psychiatric: No anxiety, No change in appetite, No depression, No memory loss and No Thoughts of harming yourself/Others Endo Endocrine: No cold intolerance, excessive sweating, fatigue, flushing, heat intolerance, increased thirst/drinking or increased hunger Aller/Imm Allergy/Immunologic : No itchy eyes, seasonal allergy symptoms, hives or wheezing Brenden/Lymp Hematologic/Lymphat ic: No easy bleeding, easy bruising, enlarged lymph nodes or other Exam Const General: cooperative and well developed HENMT Head: normal to inspection and atraumatic Ears: hearing grossly normal bilaterally Face and sinus: normal facial exam Eyes General: appearance normal, both eyes and all related structures Resp Effort Inspection: normal respiratory effort and no audible wheezes Auscultation: Bilateral: Clear to Auscultation Cardio Palpation: normal PMI Rate: regular rate Rhythm: regular rhythm Musc Musculoskeletal: No joint tenderness Neuro General: patient alert and CN's II-XI intact bilaterally Extrem General: normal to inspection Psych Appearance: grossly normal Mental Status: mental status grossly normal Attitu (more content not included)... Normal [facility] 12 Lead EKGon 07-07-2024 12 Lead EKG [facility] [address] [place] [address] 12 Lead EKG 07/07/24 1208 MR#: [id number] Acct: [id number] Name: QUENTIN GRIFFIN Rep #: [id number] : 1955 68 From: Mauro Flores MD Attending Dr: Dr. Gerardo Mckeon MD Statu s: REG CLI Ordering Dr: Montez Mckeon MD Date: 4 Location: [facility] Sex: M C Admitted: Test Reason : PRE OP Blood Pressure : / mmHG Vent. Rate : 089 BPM Atrial Rate : 089 BPM P-R Int : 136 ms QRS Dur : 076 ms QT Int : 350 ms P-R-T Axes : 036 010 050 degrees QTc Int : 425 ms Sinus rhythm with occasional Premature ventricular complexes Otherwise normal ECG Confirmed by Mauro Flores ([id number]), book or script editor HEMA LANGE ([id number]) on 07/07/2024 1:54:46 PM Referred By: Michael Mckeon Confirmed By:Mauro Flores 07/07/24 1355 Date Mauro Flores MD CC: Dr. Gerardo Mckeon MD; Dr. Abiola Leiva DO Signed Normal [facility] Basic Metabolic Profile (BMP )on 07-07-2024 BUN/CRE 13.8 RATIO Normal 10-20 [facility] Comment on above: Performed By: #### L 100.0500, L500.2500, L509.3000 #### [facility] [address] [place], [address] CA,Total 9.3 mg/dL Normal 8.5-10.1 [facility] Comment on above: Performed By: #### L 100.0500, L500.2500, L509.3000 #### [facility] [address] [place], [address] Chloride [Moles/Vol] 108 mmol/L High 98-107 [facility] Comment on above: Performed By: #### L 100.0500, L500.2500, L509.3000 #### [facility] [address] [place], [address] CO2 [Moles/Vol] 24.0 mmol/L Normal 21.0-32.0 [facility] Comment on above: Performed By: #### L 100.0500, L500.2500, L509.3000 #### [facility] [address] [place], [address] Creatinine [Mass/Vol] 1.59 mg/dL High 0.70-1.30 [facility] Comment on above: Result Comment: The validity of the calculated GFR GFRAA in patients over 70 years has not been determined. Clinical correlation is essential. Performed By: #### L 100.0500, L500.2500, L509.3000 #### [facility] [address] [place], [address] EST GFR - AA 56 mL/min Low >60 [facility] Comment on above: Result Comment: Afri can Malagasy GFR Calc Performed By: #### L 100.0500, L500.2500, L509.3000 #### [facility] [address] [place], [address] GAP 7 Normal 5-15 [facility] Comment on above: Performed By: #### L 100.0500, L500.2500, L509.3000 #### [facility] [address] [place], [address] GFR/1.73 sq M.predicted among non-blacks MDRD (S/P/Bld) [Vol rate/Area] 46 mL/min/{1.73_m2} Low >60 [facility] Comment on above: Result Comment: Non- GFR Calc Performed By: #### L 100.0500, L500.2500, L509.3000 #### [facility] [address] [place], [address] Glucose [Mass/Vol] 114 mg/dL High 74-106 [facility] Comment on above: Result Comment: Fast ing Glucose result from 100 to 125 mg/dL suggests IMPAIRED HOMEOSTASIS per A.D.A. criteria. Performed By: #### L 100.0500, L500.2500, L509.3000 #### [facility] [address] [place], [address] Potassium [Moles/Vol] 4.2 mmol/L Normal 3.5-5.1 [facility] Comment on above: Performed By: #### L 100.0500, L500.2500, L509.3000 #### [facility] [address] [place], [address] Sodium [Moles/Vol] 139 mmol/L Normal 136-145 [facility] Comment on above: Performed By: #### L 100.0500, L500.2500, L509.3000 #### [facility] [address] [place], [address] Urea nitrogen [Mass/Vol] 22 mg/dL High 7-18 [facility] Comment on above: Performed By: #### L 100.0500, L500.2500, L509.3000 #### [facility] [address] [place], [address] CBC-Complete Blood Cnt No Di ffon 07-07-2024 Erythrocyte distribution width (RBC) [Ratio] 12.0 % Normal 11.6-14.6 [facility] Comment on above: Performed By: #### L 100.0500, L500.2500, L509.3000 #### [facility] [address] [place], [address] Hematocrit (Bld) [Volume fraction] 46.5 % Normal 40-54 [facility] Comment on above: Performed By: #### L 100.0500, L500.2500, L509.3000 #### [facility] [address] [place], [address] Hemoglobin (Bld) [Mass/Vol] 16.1 g/dL Normal 13.0-16.5 [facility] Comment on above: Performed By: #### L 100.0500, L500.2500, L509.3000 #### [facility] [address] [place], [address] MCH (RBC) [Entitic mass] 30.7 pg Normal 27.0-32.0 [facility] Comment on above: Performed By: #### L 100.0500, L500.2500, L509.3000 #### [facility] [address] [place], [address] MCHC (RBC) [Mass/Vol] 34.6 g/dL Normal 32-36 [facility] Comment on above: Performed By: #### L 100.0500, L500.2500, L509.3000 #### [facility] [address] [place], [address] MCV (RBC) [Entitic vol] 88.7 fL Normal 80-94 [facility] Comment on above: Performed By: #### L 100.0500, L500.2500, L509.3000 #### [facility] [address] [place], [address] Platelet mean volume (Bld) [Entitic vol] 8.9 fL Normal 6.2-12.0 [facility] Comment on above: Performed By: #### L 100.0500, L500.2500, L509.3000 #### [facility] [address] [place], [address] Platelets (Bld) [#/Vol] 250 10*3/uL Normal 150-450 [facility] Comment on above: Performed By: #### L 100.0500, L500.2500, L509.3000 #### [facility] [address] [place], [address] RBC (Bld) [#/Vol] 5.24 10*6/uL Normal 4.6-6.2 [facility] Comment on above: Performed By: #### L 100.0500, L500.2500, L509.3000 #### [facility] [address] [place], [address] RDW SD 38.8 fl Normal 35.1-43.9 [facility] Comment on above: Performed By: #### L 100.0500, L500.2500, L509.3000 #### [facility] [address] [place], [address] WBC (Bld) [#/Vol] 7.3 10*3/uL Normal 4.4-11.0 [facility] Comment on above: Performed By: #### L 100.0500, L500.2500, L509.3000 #### [facility] [address] [place], [address] Testosterone, Serum Totalon 07-07-2024 Testosterone [Mass/Vol] 323.24 ng/dL Normal [facility] Comment on above: Result Comment: CENT RAL 90% REFERENCE RANGES MALE AGE <50 197.44 - 669.58 ng/dL MALE AGE > or = 50 187.72 - 684.19 ng/dL FEMALE AGE <50 8.38 - 35.01 ng/dL FEMALE AGE > or = 50 <7.00 - 35.92 ng/dL Effective as of 06/07/21 Performed By: #### L 100.0500, L500.2500, L509.3000 #### [facility] [address] [place], [address] .GFRon 03-21-2024 GFR 59 ml/min/1.73sqm Normal [facility] ([place]) Comment on above: Result Comment: GFR Population mean for , Non- Americans Ages 20-29 = 116 mL/min/1.73 sq.m. Ages 30-39 = 107 mL/min/1.73 sq.m. Ages 40-49 = 99 mL/min/1.73 sq.m. Ages 50-59 = 93 mL/min/1.73 sq.m. Ages 60-69 = 85 mL/min/1.73 sq.m. Ages 70+ = 75 mL/min/1.73 sq.m. Chronic Kidney Disease: Less than 60 mL/min/1.73 square meters End Stage Renal Disease: Less than 15 mL/min/1.73 square meters Performed By: #### C MP, GFR #### [place] [address] [address] GFR Non- 49 ml/min/1.73sqm Normal [facility] ([place] Comment on above: Result Comment: GFR Population mean for , Non- Americans Ages 20-29 = 116 mL/min/1.73 sq.m. Ages 30-39 = 107 mL/min/1.73 sq.m. Ages 40-49 = 99 mL/min/1.73 sq.m. Ages 50-59 = 93 mL/min/1.73 sq.m. Ages 60-69 = 85 mL/min/1.73 sq.m. Ages 70+ = 75 mL/min/1.73 sq.m. Chronic Kidney Disease: Less than 60 mL/min/1.73 square meters End Stage Renal Disease: Less than 15 mL/min/1.73 square meters Performed By: #### C MP, GFR #### [place] [address] [address] CMPon 03-21-2024 Albumin Level 3.8 G/dL Normal 3.4-4.8 [facility] ([place]) Comment on above: Performed By: #### C MP, GFR #### [address] [address] Albumin/Globulin [Mass ratio] 1.2 {ratio} Normal 1.1-2.5 [facility] ([place] Comment on above: Performed By: #### C MP, GFR #### [address] [address] ALP [Catalytic activity/Vol] 93 U/L Normal 40-135 [facility] ([place] Comment on above: Performed By: #### C MP, GFR #### [address] [address] ALT [Catalytic activity/Vol] 35 U/L Normal 16-63 [facility] ([place] Comment on above: Performed By: #### C MP, GFR #### [address] [address] AST [Catalytic activity/Vol] 23 U/L Normal 10-40 [facility] ([place] Comment on above: Performed By: #### C MP, GFR #### [address] [address] Bili Total 0.8 mg/dL Normal 0.2-1.0 [facility] ([place] Comment on above: Result Comment: Use of this assay is not recommended for patients undergoing treatment with eltrombopag due to the potential for falsely elevated results. Performed By: #### C MP, GFR #### [address] [address] BUN/Creatinine Ratio 19 ratio Normal 7-27 [facility] ([place] Comment on above: Performed By: #### C MP, GFR #### [address] [address] Calcium [Mass/Vol] 8.5 mg/dL Normal 8.4-10.2 [facility] ([place] Comment on above: Performed By: #### C MP, GFR #### [address] [address] Chloride [Moles/Vol] 103 mmol/L Normal 98-107 [facility] ([place] Comment on above: Performed By: #### C MP, GFR #### [address] [address] CO2 [Moles/Vol] 24 mmol/L Normal 23-31 [facility] ([place] Comment on above: Performed By: #### C MP, GFR #### [address] [address] Creatinine [Mass/Vol] 1.44 mg/dL High 0.70-1.30 [facility] ([place] Comment on above: Performed By: #### C MP, GFR #### [address] [address] Electrolyte Balance 12.0 mEq/L Normal 4.0-15.0 [facility] ([place] Comment on above: Performed By: #### C MP, GFR #### [address] [address] Globulin 3.1 G/dL Normal [facility] ([place] Comment on above: Performed By: #### C MP, GFR #### [address] [address] Glucose [Mass/Vol] 122 mg/dL High 80-115 [facility] ([place] Comment on above: Performed By: #### C MP, GFR #### [address] [address] Potassium [Moles/Vol] 4.5 mmol/L Normal 3.5-5.1 [facility] ([place] Comment on above: Performed By: #### C MP, GFR #### [address] [address] Sodium [Moles/Vol] 139 mmol/L Normal 136-145 [facility] ([place] Comment on above: Performed By: #### C MP, GFR #### [address] [address] Total Protein 6.9 G/dL Normal 6.4-8.2 [facility] ([place] Comment on above: Performed By: #### C MP, GFR #### [place] [address] [place], [place] [address] Urea nitrogen [Mass/Vol] 27 mg/dL High 7-18 [facility] ([place] Comment on above: Performed By: #### C MP, GFR #### [address] [place], [place] [address] LABORATORYOrdered By: SYSTEM SYSTEM on 03-21-2024 Albumin BCP dye [Mass/Vol] 3.8 G/dL Normal 3.4 - 4.8 G/dL AO ADM SS Albumin/Globulin [Mass ratio] 1.2 {ratio} Normal 1.1 - 2.5 ratio AO ADM SS ALP [Catalytic activity/Vol] 93 U/L Normal 40 - 135 U/L AO ADM SS ALT With P-5'-P [Catalytic activity/Vol] 35 U/L Normal 16 - 63 U/L AO ADM SS AST With P-5'-P [Catalytic activity/Vol] 23 U/L Normal 10 - 40 U/L AO ADM SS Bilirubin [Mass/Vol] 0.8 mg/dL Normal 0.2 - 1 .0 mg/dL AO ADM SS Comment on above: Interpretive Data: U se of this assay is not recommended for patients undergoing treatment with eltrombopag due to the potential for falsely elevated results. Calcium [Mass/Vol] 8.5 mg/dL Normal 8.4 - 10. 2 mg/dL AO ADM SS Chloride [Moles/Vol] 103 mmol/L Normal 98 - 10 7 mmol/L AO ADM SS CO2 [Moles/Vol] 24 mmol/L Normal 23 - 31 mmol/L AO ADM SS Creatinine [Mass/Vol] 1.44 mg/dL High 0.70 - 1.30 mg/dL AO ADM SS Electrolyte Balance 12.0 mEq/L Normal 4.0 - 15 .0 mEq/L AO ADM SS GFR/1.73 sq M.predicted among blacks MDRD (S/P/Bld) [Vol rate/Area] 59 ml/min/1.73sqm Invalid Interpretation Code AO Chemistry S Comment on above: Interpretive Data: GFR Population mean for , Non- Americans Ages 20-29 = 116 mL/min/1.73 sq.m. Ages 30-39 = 107 mL/min/1.73 sq.m. Ages 40-49 = 99 mL/min/1.73 sq.m. Ages 50-59 = 93 mL/min/1.73 sq.m. Ages 60-69 = 85 mL/min/1.73 sq.m. Ages 70+ = 75 mL/min/1.73 sq.m. Chronic Kidney Disease: Less than 60 mL/min/1.73 square meters End Stage Renal Disease: Less than 15 mL/min/1.73 square meters GFR/1.73 sq M.predicted among non-blacks MDRD (S/P/Bld) [Vol rate/Area] 49 ml/min/1.73sqm Invalid Interpretation Code AO Chemistry S Comment on above: Interpretive Data: GFR Population mean for , Non- Americans Ages 20-29 = 116 mL/min/1.73 sq.m. Ages 30-39 = 107 mL/min/1.73 sq.m. Ages 40-49 = 99 mL/min/1.73 sq.m. Ages 50-59 = 93 mL/min/1.73 sq.m. Ages 60-69 = 85 mL/min/1.73 sq.m. Ages 70+ = 75 mL/min/1.73 sq.m. Chronic Kidney Disease: Less than 60 mL/min/1.73 square meters End Stage Renal Disease: Less than 15 mL/min/1.73 square meters Globulin 3.1 G/dL Invalid Interpretation Code AO ADM SS Glucose [Mass/Vol] 122 mg/dL High 80 - 115 mg/dL AO ADM SS Potassium [Moles/Vol] 4.5 mmol/L Normal 3.5 - 5.1 mmol/L AO ADM SS Protein [Mass/Vol] 6.9 G/dL Normal 6.4 - 8.2 G/dL AO ADM SS Sodium [Moles/Vol] 139 mmol/L Normal 136 - 145 mmol/L AO ADM SS TSH Qn 2.52 m[IU]/L Normal 0.36 - 3.74 mcIU/mL AO ADM SS Urea nitrogen [Mass/Vol] 27 mg/dL High 7 - 18 mg/dL AO ADM SS Urea nitrogen/Creatinine [Mass ratio] 19 ratio Normal 7 - 27 ratio AO ADM SS TSHon 03-21-2024 TSH Qn 2.52 m[IU]/L Normal 0.36-3.74 [facility] ([place]) Comment on above: Performed By: #### T SH #### [address] [address] .Auto Diffon 08-27-2023 Basophil, Absolute 0.1 10 3/mcL Normal 0.0-0.2 [facility] ([place] Comment on above: Performed By: #### A DIFF, CMP, GFR, CBC, ANEU #### [place] [address] #### TESTO #### [address] [address] Basophils/100 WBC (Bld) 0.7 % Normal 0.0-2.5 [facility] ([place] Comment on above: Performed By: #### A DIFF, CMP, GFR, CBC, ANEU #### [place] [address] #### TESTO #### [address] [address] Eosinophil, Absolute 0.5 10 3/mcL High 0.0-0.4 [facility] ([place]) Comment on above: Performed By: #### A DIFF, CMP, GFR, CBC, ANEU #### [place] [address] #### TESTO #### [address] [address] Eosinophils/100 WBC (Bld) 6.8 % Normal 0.0-7.0 [facility] ([place] Comment on above: Performed By: #### A DIFF, CMP, GFR, CBC, ANEU #### [place] [address] #### TESTO #### [address] [address] Lymphocyte, Absolute 1.7 10 3/mcL Normal 0.8-3.9 [facility] ([place] Comment on above: Performed By: #### A DIFF, CMP, GFR, CBC, ANEU #### [address] [address] #### TESTO #### [address] [address] Lymphocytes/100 WBC (Bld) 21.9 % Normal 10.0-50.0 [facility] ([place] Comment on above: Performed By: #### A DIFF, CMP, GFR, CBC, ANEU #### [address] [address] #### TESTO #### [address] [address] Monocyte, Absolute 0.9 10 3/mcL Normal 0.2-1.0 [facility] ([place] Comment on above: Performed By: #### A DIFF, CMP, GFR, CBC, ANEU #### [place] [address] #### TESTO #### [address] [address] Monocytes/100 WBC (Bld) 12.3 % Normal 1.7-13.0 [facility] ([place] Comment on above: Performed By: #### A DIFF, CMP, GFR, CBC, ANEU #### [address] [address] #### TESTO #### [address] [address] Neutrophils/100 WBC (Bld) 58.3 % Normal 37.0-80.0 [facility] ([place] Comment on above: Performed By: #### A DIFF, CMP, GFR, CBC, ANEU #### [place] [address] #### TESTO #### [address] [address] .GFRon 08-27-2023 GFR 51 ml/min/1.73sqm Normal [facility] ([place] Comment on above: Result Comment: GFR Population mean for , Non- Americans Ages 20-29 = 116 mL/min/1.73 sq.m. Ages 30-39 = 107 mL/min/1.73 sq.m. Ages 40-49 = 99 mL/min/1.73 sq.m. Ages 50-59 = 93 mL/min/1.73 sq.m. Ages 60-69 = 85 mL/min/1.73 sq.m. Ages 70+ = 75 mL/min/1.73 sq.m. Chronic Kidney Disease: Less than 60 mL/min/1.73 square meters End Stage Renal Disease: Less than 15 mL/min/1.73 square meters Performed By: #### A DIFF, CMP, GFR, CBC, ANEU #### [address] [address] #### TESTO #### [address] [address] GFR Non- 42 ml/min/1.73sqm Normal [facility] ([place] Comment on above: Result Comment: GFR Population mean for , Non- Americans Ages 20-29 = 116 mL/min/1.73 sq.m. Ages 30-39 = 107 mL/min/1.73 sq.m. Ages 40-49 = 99 mL/min/1.73 sq.m. Ages 50-59 = 93 mL/min/1.73 sq.m. Ages 60-69 = 85 mL/min/1.73 sq.m. Ages 70+ = 75 mL/min/1.73 sq.m. Chronic Kidney Disease: Less than 60 mL/min/1.73 square meters End Stage Renal Disease: Less than 15 mL/min/1.73 square meters Performed By: #### A DIFF, CMP, GFR, CBC, ANEU #### [address] [address] #### TESTO #### [address] [address] .NEUABSon 08-27-2023 Neutrophil, Absolute 4.4 10 3/mcL Normal 2.9-6.2 [facility] ([place] Comment on above: Performed By: #### A DIFF, CMP, GFR, CBC, ANEU #### [place] [address] #### TESTO #### [address] [address] CBCon 08-27-2023 Erythrocyte distribution width (RBC) [Ratio] 12.5 % Normal 11.5-14.5 [facility] ([place] Comment on above: Performed By: #### A DIFF, CMP, GFR, CBC, ANEU #### [place] [address] #### TESTO #### [place] [address] Hematocrit (Bld) [Volume fraction] 43.2 % Normal 42.0-52.0 [facility] ([place] Comment on above: Performed By: #### A DIFF, CMP, GFR, CBC, ANEU #### [place] [address] #### TESTO #### [place] [address] Hgb 15.2 G/dL Normal 14.0-18.0 [facility] ([place] Comment on above: Performed By: #### A DIFF, CMP, GFR, CBC, ANEU #### [place] [address] #### TESTO #### [place] [address] MCH (RBC) [Entitic mass] 31.8 pg High 27.0-31.2 [facility] ([place] Comment on above: Performed By: #### A DIFF, CMP, GFR, CBC, ANEU #### [place] [address] #### TESTO #### [place] [address] MCHC 35.1 G/dL Normal 31.8-35.4 [facility] ([place] Comment on above: Performed By: #### A DIFF, CMP, GFR, CBC, ANEU #### [place] [address] #### TESTO #### [place] [address] MCV (RBC) [Entitic vol] 90.6 fL Normal 80.0-94.0 [facility] ([place] Comment on above: Performed By: #### A DIFF, CMP, GFR, CBC, ANEU #### [place] [address] #### TESTO #### [place] [address] Platelet 283 10 3/mcL Normal 130-400 [facility] ([place] Comment on above: Performed By: #### A DIFF, CMP, GFR, CBC, ANEU #### [place] [address] #### TESTO #### [place] [address] Platelet mean volume (Bld) [Entitic vol] 6.7 fL Low 7.4-10.4 [facility] ([place] Comment on above: Performed By: #### A DIFF, CMP, GFR, CBC, ANEU #### [place] [address] #### TESTO #### [place] [address] RBC 4.77 10 6/mcL Normal 4.04-6.13 [facility] ([place] Comment on above: Performed By: #### A DIFF, CMP, GFR, CBC, ANEU #### [place] [address] #### TESTO #### [place] [address] WBC 7.6 10 3/mcL Normal 4.6-10.8 [facility] ([place] Comment on above: Performed By: #### A DIFF, CMP, GFR, CBC, ANEU #### [place] [address] #### TESTO #### [place] [address] CMPon 08-27-2023 Albumin Level 3.6 G/dL Normal 3.4-4.8 [facility] ([place] Comment on above: Performed By: #### A DIFF, CMP, GFR, CBC, ANEU #### [place] [address] #### TESTO #### [address] [address] Albumin/Globulin [Mass ratio] 1.2 {ratio} Normal 1.1-2.5 [facility] ([place] Comment on above: Performed By: #### A DIFF, CMP, GFR, CBC, ANEU #### [place] [address] #### TESTO #### [address] [address] ALP [Catalytic activity/Vol] 103 U/L Normal 40-135 [facility] ([place] Comment on above: Performed By: #### A DIFF, CMP, GFR, CBC, ANEU #### [place] [address] #### TESTO #### [address] [address] ALT [Catalytic activity/Vol] 37 U/L Normal 16-63 [facility] ([place] Comment on above: Performed By: #### A DIFF, CMP, GFR, CBC, ANEU #### [place] [address] #### TESTO #### [address] [address] AST [Catalytic activity/Vol] 31 U/L Normal 10-40 [facility] ([place] Comment on above: Performed By: #### A DIFF, CMP, GFR, CBC, ANEU #### [place] [address] #### TESTO #### [address] [address] Bili Total 0.8 mg/dL Normal 0.2-1.0 [facility] ([place] Comment on above: Result Comment: Use of this assay is not recommended for patients undergoing treatment with eltrombopag due to the potential for falsely elevated results. Performed By: #### A DIFF, CMP, GFR, CBC, ANEU #### [place] [address] #### TESTO #### [address] [address] BUN/Creatinine Ratio 15 ratio Normal 7-27 [facility] ([place] Comment on above: Performed By: #### A DIFF, CMP, GFR, CBC, ANEU #### [place] [address] #### TESTO #### [address] [address] Calcium [Mass/Vol] 8.4 mg/dL Normal 8.4-10.2 [facility] ([place] Comment on above: Performed By: #### A DIFF, CMP, GFR, CBC, ANEU #### [place] [address] #### TESTO #### [address] [address] Chloride [Moles/Vol] 101 mmol/L Normal 98-107 [facility] ([place] Comment on above: Performed By: #### A DIFF, CMP, GFR, CBC, ANEU #### [place] [address] #### TESTO #### [address] [address] CO2 [Moles/Vol] 26 mmol/L Normal 23-31 [facility] ([place] Comment on above: Performed By: #### A DIFF, CMP, GFR, CBC, ANEU #### [place] [address] #### TESTO #### [address] [address] Creatinine [Mass/Vol] 1.65 mg/dL High 0.70-1.30 [facility] ([place] Comment on above: Performed By: #### A DIFF, CMP, GFR, CBC, ANEU #### [place] [address] #### TESTO #### [address] [address] Electrolyte Balance 10.0 mEq/L Normal 4.0-15.0 [facility] ([place] Comment on above: Performed By: #### A DIFF, CMP, GFR, CBC, ANEU #### [address] [address] #### TESTO #### [address] [address] Globulin 2.9 G/dL Normal [facility] ([place] Comment on above: Performed By: #### A DIFF, CMP, GFR, CBC, ANEU #### [place] [address] #### TESTO #### [address] [address] Glucose [Mass/Vol] 147 mg/dL High 80-115 [facility] ([place] Comment on above: Performed By: #### A DIFF, CMP, GFR, CBC, ANEU #### [place] [address] #### TESTO #### [address] [address] Potassium [Moles/Vol] 4.8 mmol/L Normal 3.5-5.1 [facility] ([place] Comment on above: Performed By: #### A DIFF, CMP, GFR, CBC, ANEU #### [place] [address] #### TESTO #### [address] [address] Sodium [Moles/Vol] 137 mmol/L Normal 136-145 [facility] ([place] Comment on above: Performed By: #### A DIFF, CMP, GFR, CBC, ANEU #### [address] [address] #### TESTO #### [address] [address] Total Protein 6.5 G/dL Normal 6.4-8.2 [facility] ([place] Comment on above: Performed By: #### A DIFF, CMP, GFR, CBC, ANEU #### [address] [address] #### TESTO #### [address] [address] Urea nitrogen [Mass/Vol] 24 mg/dL High 7-18 [facility] ([place] Comment on above: Performed By: #### A DIFF, CMP, GFR, CBC, ANEU #### [place] [address] [place], [place] [address] #### TESTO #### [address] [address] LABORATORYOrdered By: SYSTEM SYSTEM on 08-27-2023 Albumin BCP dye [Mass/Vol] 3.6 G/dL Invalid Interpretation Code 3.4 - 4.8 G/dL AO ADM SS Albumin/Globulin [Mass ratio] 1.2 {ratio} Invalid Interpretation Code 1.1 - 2.5 ratio AO ADM SS ALP [Catalytic activity/Vol] 103 U/L Invalid Interpretation Code 40 - 135 U/L AO ADM SS ALT With P-5'-P [Catalytic activity/Vol] 37 U/L Invalid Interpretation Code 16 - 63 U/L AO ADM SS AST With P-5'-P [Catalytic activity/Vol] 31 U/L Invalid Interpretation Code 10 - 40 U/L AO ADM SS Basophil, Absolute 0.1 103/mcL Invalid Interpretation Code 0.0 - 0.2 10^3/mcL AO Workflow SS Basophils/100 WBC (Bld) 0.7 % Invalid Interpretation Code 0.0 - 2.5 % AO Workflow SS Bilirubin [Mass/Vol] 0.8 mg/dL Invalid Interpretation Code 0.2 - 1.0 mg/dL AO ADM SS Comment on above: Interpretive Data: U se of this assay is not recommended for patients undergoing treatment with eltrombopag due to the potential for falsely elevated results. Calcium [Mass/Vol] 8.4 mg/dL Invalid Interpretation Code 8.4 - 10.2 mg/dL AO ADM SS Chloride [Moles/Vol] 101 mmol/L Invalid Interpretation Code 98 - 107 mmol/L AO ADM SS CO2 [Moles/Vol] 26 mmol/L Invalid Interpretation Code 23 - 31 mmol/L AO ADM SS Creatinine [Mass/Vol] 1.65 mg/dL Invalid Interpretation Code 0.70 - 1.30 mg/dL AO ADM SS Electrolyte Balance 10.0 mEq/L Invalid Interpretation Code 4.0 - 15.0 mEq/L AO ADM SS Eosinophil, Absolute 0.5 103/mcL Invalid Interpretation Code 0.0 - 0.4 10^3/mcL AO Workflow SS Eosinophils/100 WBC (Bld) 6.8 % Invalid Interpretation Code 0.0 - 7.0 % AO Workflow SS Erythrocyte distribution width (RBC) [Ratio] 12.5 % Invalid Interpretation Code 11.5 - 14.5 % AO Workflow SS GFR/1.73 sq M.predicted among blacks MDRD (S/P/Bld) [Vol rate/Area] 51 ml/min/1.73sqm Invalid Interpretation Code AO Chemistry S Comment on above: Interpretive Data: GFR Population mean for , Non- Americans Ages 20-29 = 116 mL/min/1.73 sq.m. Ages 30-39 = 107 mL/min/1.73 sq.m. Ages 40-49 = 99 mL/min/1.73 sq.m. Ages 50-59 = 93 mL/min/1.73 sq.m. Ages 60-69 = 85 mL/min/1.73 sq.m. Ages 70+ = 75 mL/min/1.73 sq.m. Chronic Kidney Disease: Less than 60 mL/min/1.73 square meters End Stage Renal Disease: Less than 15 mL/min/1.73 square meters GFR/1.73 sq M.predicted among non-blacks MDRD (S/P/Bld) [Vol rate/Area] 42 ml/min/1.73sqm Invalid Interpretation Code AO Chemistry S Comment on above: Interpretive Data: GFR Population mean for , Non- Americans Ages 20-29 = 116 mL/min/1.73 sq.m. Ages 30-39 = 107 mL/min/1.73 sq.m. Ages 40-49 = 99 mL/min/1.73 sq.m. Ages 50-59 = 93 mL/min/1.73 sq.m. Ages 60-69 = 85 mL/min/1.73 sq.m. Ages 70+ = 75 mL/min/1.73 sq.m. Chronic Kidney Disease: Less than 60 mL/min/1.73 square meters End Stage Renal Disease: Less than 15 mL/min/1.73 square meters Globulin 2.9 G/dL Invalid Interpretation Code AO ADM SS Glucose [Mass/Vol] 147 mg/dL Invalid Interpretation Code 80 - 115 mg/dL AO ADM SS Hematocrit (Bld) [Volume fraction] 43.2 % Invalid Interpretation Code 42.0 - 52.0 % AO Workflow SS Hemoglobin (Bld) [Mass/Vol] 15.2 G/dL Invalid Interpretation Code 14.0 - 18.0 G/dL AO Workflow SS Lymphocyte, Absolute 1.7 103/mcL Invalid Interpretation Code 0.8 - 3.9 10^3/mcL AO Workflow SS Lymphocytes/100 WBC (Bld) 21.9 % Invalid Interpretation Code 10.0 - 50.0 % AO Workflow SS MCH (RBC) [Entitic mass] 31.8 pg Invalid Interpretation Code 27.0 - 31.2 pg AO Workflow SS MCHC 35.1 G/dL Invalid Interpretation Code 31.8 - 35.4 G/dL AO Workflow SS MCV (RBC) [Entitic vol] 90.6 fL Invalid Interpretation Code 80.0 - 94.0 fL AO Workflow SS Monocyte, Absolute 0.9 103/mcL Invalid Interpretation Code 0.2 - 1.0 10^3/mcL AO Workflow SS Monocytes/100 WBC (Bld) 12.3 % Invalid Interpretation Code 1.7 - 13.0 % AO Workflow SS Neutrophil, Absolute 4.4 103/mcL Invalid Interpretation Code 2.9 - 6.2 10^3/mcL AO Workflow SS Neutrophils/100 WBC (Bld) 58.3 % Invalid Interpretation Code 37.0 - 80.0 % AO Workflow SS Platelet mean volume (Bld) [Entitic vol] 6.7 fL Invalid Interpretation Code 7.4 - 10.4 fL AO Workflow SS Platelets (Bld) [#/Vol] 283 103/mcL Invalid Interpretation Code 130 - 400 10^3/mcL AO Workflow SS Potassium [Moles/Vol] 4.8 mmol/L Invalid Interpretation Code 3.5 - 5.1 mmol/L AO ADM SS Protein [Mass/Vol] 6.5 G/dL Invalid Interpretation Code 6.4 - 8.2 G/dL AO ADM SS RBC (Bld) [#/Vol] 4.77 106/mcL Invalid Interpretation Code 4.04 - 6.13 10^6/mcL AO Workflow SS Sodium [Moles/Vol] 137 mmol/L Invalid Interpretation Code 136 - 145 mmol/L AO ADM SS Testosterone [Mass/Vol] 364.32 ng/dL Invalid Interpretation Code 86.98 - 780.10 ng/dL AH ADM SS Comment on above: Interpretive Data: N ormal Reference Ranges for Females: Female Premenopause Jmp54-845.01-47.94 ng/dL Female Postmenopause Izy33-54<7.00-45.62 ng/dL Urea nitrogen [Mass/Vol] 24 mg/dL Invalid Interpretation Code 7 - 18 mg/dL AO ADM SS Urea nitrogen/Creatinine [Mass ratio] 15 ratio Invalid Interpretation Code 7 - 27 ratio AO ADM SS WBC (Bld) [#/Vol] 7.6 103/mcL Invalid Interpretation Code 4.6 - 10.8 10^3/mcL AO Workflow SS TESTOon 08-27-2023 Testosterone Lvl 364.32 ng/dL Normal 86.98-780.10 [facility]ly [facility] ([place]) Comment on above: Result Comment: Norm al Reference Ranges for Females: Female Premenopause Age 21-60 9.01-47.94 ng/dL Female Postmenopause Age 45-89 <7.00-45.62 ng/dL Performed By: #### A DIFF, CMP, GFR, CBC, ANEU #### [address] [address] #### TESTO #### [place] [address] CNOVon 05-31-2022 CNOV Office Visit ([facility]) ---- QUENTIN GRIFFIN ([id number]) 1955 M Date Time Provider Department 05/31/22 5:30 PM GABY ALFRED WSTR During your visit today, we recorded the following information about you: Temperature Pulse Respiration Blood pressure 98 degrees 70/minute 19/minute 128/80 Weight 97.5 kg Gaby Alfred APRN.CNP 05/31/2022 6:05 PM Signed Subjective The history is provided by the patient. No language teacher was used. HPI Quentin Griffin is a 66 year old male who presents today for CC of headache, body aches, fatigue since Sunday. He has used naproxen with short term relief. He is vaccinated for covid. He was at a restaurant on Sunday and symptoms started on Sunday, no known exposure to illness or covid BP 128/80 Pulse 70 Temp 36.7 ?C (98 ?F) Resp 19 Wt 97.5 kg (215 lb) SpO2 96% BMI 33.67 kg/m? 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 Negative for fever. HENT: Negative for congestion, ear pain, sinus pain and sore throat. Respiratory: Negative for cough, sputum production, shortness of breath and wheezing. Cardiovascular: Negative for chest pain. Musculoskeletal: Positive for myalgias. Neurological: Positive for headaches. Objective Physical Exam Vitals and nursing note reviewed. HENT: Head: Normocephalic and atraumatic. Right Ear: Tympanic membrane, ear canal and external ear normal. Left Ear: Tympanic membrane, ear canal and external ear normal. Nose: No mucosal edema or rhinorrhea. Right Sinus: No maxillary sinus tenderness or frontal sinus tenderness. Left Sinus: No maxillary sinus tenderness or frontal sinus tenderness. Mouth/Throat: Pharynx: Uvula midline. No oropharyngeal exudate or posterior oropharyngeal erythema. Tonsils: No tonsillar abscesses. Cardiovascular: Rate and Rhythm: Normal rate and regular rhythm. Heart sounds: Normal heart sounds. Pulmonary: Effort: Pulmonary effort is normal. Breath sounds: Normal breath sounds. No decreased breath sounds, wheezing, rhonchi or rales. Lymphadenopathy: Head: Right side of head: No submental, submandibular, tonsillar or preauricular adenopathy. Left side of head: No submental, submandibular, tonsillar or preauricular adenopathy. Cervical: No cervical adenopathy. Right cervical: No superficial cervical adenopathy. Left cervical: No superficial cervical adenopathy. ASSESSMENT/PLAN: 1. Suspected COVID-19 virus infection - ICD9: V01.79, ICD10: Z20.822 Possible viral illness Home isolation Testing ordered Comfort measures discussed - see patient instructions. When to seek higher level of care Notified in 24-48 hours with results, available on [employer] - COVID WITH FLUA+B, ROUTINE Diagnosis and treatment plan were discussed and questions were answered to the patient's satisfaction. Pt acknowledged understanding of concepts and follow up plan. Specific signs and symptoms that would indicate the need for higher level of care were discussed in detail warranting prompt ER evaluation. Gaby Alfred APRN.BRUCE Alfred APRN.BRUCE 05/31/2022 5:45 PM Signed covid test ordered You will be notified in 24 -48 hours, results available on [employer] Home isolation until covid results are back Rest, increase water intake Motrin or Tylenol as needed for fever or pain. Salt water gargles, chloraseptic spray or lozenges as needed for sore throat. Warm beverages, honey. Nasal saline spray as needed Cool mist humidifier at night Tylenol (generic acetaminophen) 500 mg-2 tabs every 8 hrs. as needed for fever and aches Aleve 2 twice a day * Seek medical care immediately, call 911, go to ER if you have chest pain, difficulty breathing, shortness of breath, inability to swallow. Referring Provider: SELF [200] Allergies As of Date: 05/31/2022 Noted Allergy Reaction LACTOSE 06/27/2007 8 - GI Upset Date Reviewed: 05/31/2022 Reviewed by: Gaby Alfred APRN.BRUCE - Fully Assessed Reason for Visit: Headache [52] Cmt: body aches,eyes hurt, fatigue x 4 days Primary Visit Diagnosis:Suspected COVID-19 virus infection [Z20.822] Order(s):COVID WITH FLUA+B, ROUTINE [SQCOVFLU] Order #: [id number] FUTURE COVID WITH FLUA+B, ROUTINE [SQCOVFLU] Order #: [id number]. #:[id number] Prescriptions as of 05/31/2022 - [facility] (more content not included)... Normal [facility] Absolute lymphocyte counton 05-05-2022 Lymphocytes Auto (Unsp spec) [#/Vol] 1.49 10*3/uL 0.83-4.51 [facility] Work Phone: Basophil percentageon 2021 Basophils/100 WBC (Bld) 0.7 % 0-1 [facility] Work Phone: Cholesterol [Mass/Vol] 177 mg/dL <200 [facility] Work Phone: Comment on above: <200 mg/dL Desirable 200-240 mg/dL Borderline >240 mg/dL High Risk Eosinophils/100 WBC (Bld) 3.7 % 0-5 [facility] Work Phone: Neutrophils (Bld) [#/Vol] 4.4 10*3/uL 2.0-7.7 [facility] Work Phone: Neutrophils/100 WBC (Bld) 63.0 % 47-70 [facility] Work Phone: Triglyceride [Mass/Vol] 389 mg/dL <199 [facility] Work Phone: Comment on above: The drugs N-Acetylcy steine and Metamizole may falsely depress this assay.Serum Triglycerides Reference Interval Normal <150 mg/dL Borderline high 150 - 199 mg/dL High 200 - 499 mg/dL Very High > or = 500 mg/dL WBC (Bld) [#/Vol] 7.0 10*3/uL 4.4-11.0 [facility] Work Phone: Bilirubin [Mass/Vol] 0.70 mg/dL 0.20-1.00 [facility] Work Phone: Comment on above: For patients on eltr ombopag therapy, use of Dimension [place] TBIL is not recommended. Chloride [Moles/Vol] 104 mmol/L 98-107 [facility] Work Phone: Glucose [Mass/Vol] 125 mg/dL 74-106 [facility] Work Phone: Comment on above: Fasting Glucose resu lt from 100 to 125 mg/dL suggests IMPAIRED HOMEOSTASIS per A.D.A. criteria. Potassium [Moles/Vol] 4.6 mmol/L 3.5-5.1 [facility] Work Phone: Protein [Mass/Vol] 7.1 g/dL 6.4-8.2 [facility] Work Phone: Sodium [Moles/Vol] 137 mmol/L 136-145 [facility] Work Phone: Blood erythrocytes count (nu mber/volume)on 05-05-2022 RBC (Bld) [#/Vol] 5.13 10*6/uL 4.6-6.2 [facility] Work Phone: Blood hemoglobin measurement (mass/volume)on 05-05-2022 Hemoglobin (Bld) [Mass/Vol] 16.4 g/dL 13.0-16.5 [facility] Work Phone: Blood lymphocytes/100 leukoc yteson 05-05-2022 Lymphocytes/100 WBC (Bld) 21.2 % 19-41 [facility] Work Phone: Blood monocytes/100 leukocyt eson 05-05-2022 Monocytes/100 WBC (Bld) 11.0 % 0-10 [facility] Work Phone: Blood platelet mean volumeon 05-05-2022 Platelet mean volume (Bld) [Entitic vol] 9.1 fL 6.2-12.0 [facility] Work Phone: Determination of erythrocyte mean corpuscular volume (MCV)on 05-05-2022 MCV (RBC) [Entitic vol] 92.4 fL 80-94 [facility] Work Phone: Hematocrit Auto (Bld) [Volum e fraction]on 05-05-2022 Hematocrit (Bld) [Volume fraction] 47.4 % 40-54 [facility] Work Phone: Laboratory - Chemistry and C hemistry - challengeon 05-05-2022 ALP [Catalytic activity/Vol] 99 U/L 45-117 [facility] Work Phone: ALT [Catalytic activity/Vol] 39 U/L 16-61 [facility] Work Phone: CO2 [Moles/Vol] 26.0 mmol/L 21.0-32.0 [facility] Work Phone: Globulin (S) [Mass/Vol] 3.2 g/dL 2.2-4.2 [facility] Work Phone: Urea nitrogen/Creatinine [Mass ratio] 10.5 mg/mg 10-20 [facility] Work Phone: Laboratory - Hematology and Cell countson 05-05-2022 Erythrocyte distribution width (RBC) [Entitic vol] 39.8 fL 35.1-43.9 [facility] Work Phone: Erythrocyte distribution width (RBC) [Ratio] 11.8 % 11.6-14.6 [facility] Work Phone: Immature granulocytes/100 WBC (Bld) 0.400 % 0.0-0.9 [facility] Work Phone: Comment on above: IG% - Immature Granu locytes (promyelocytes, myelocytes and metamyelocytes) > 1% indicates that a LEFT SHIFT is Present. MCH (RBC) [Entitic mass] 32.0 pg 27.0-32.0 [facility] Work Phone: Nucleated RBC/100 WBC (Bld) [Ratio] 0 % 0-5 [facility] Work Phone: MCHC Auto (RBC) [Mass/Vol]on 05-05-2022 MCHC (RBC) [Mass/Vol] 34.6 g/dL 32-36 [facility] Work [facility]: No Panel Informationon 05-05 Prostate Specific Antigen Screen 3.46 ng/mL 0.00-4.00 [facility] Work Phone: Comment on above: This test was perfor med using the TPSA assay method for [employer] chemistry system. Values obtained with differentassay methods cannot be used interchangably.When changing PSA assays in the course of monitoring apatient, additional sequential testing should be carriedout to confirm baseline values. Thyroid Stimulating Hormone (TSH) 2.85 uIU/mL 0.358-3.74 [facility] Work Phone: Estimated GFR (MDRD) Amer 59 mL/min >60 [facility] Work Phone: Comment on above: GFR Calc Estimated GFR (MDRD) Non-Af Amer 49 mL/min >60 [facility] Work Phone: Comment on above: Non- GFR Calc Platelets bldon 05-05-2022 Platelets (Bld) [#/Vol] 253 10*3/uL 150-450 [facility] Work Phone: Serum or plasma albumin batool urement (mass/volume)on 05-05-2022 Albumin [Mass/Vol] 3.9 g/dL 3.2-5.0 [facility] Work Phone: Serum or plasma albumin/glob ulin mass ratioon 05-05-2022 Albumin/Globulin [Mass ratio] 1.2 {ratio} 0.9-2.4 [facility] Work Phone: Serum or plasma calcium batool urement (mass/volume)on 05-05-2022 Calcium [Mass/Vol] 8.8 mg/dL 8.5-10.1 [facility] Work Phone: Serum or plasma cholesterol in HDL measurement (mass/volume)on 05-05-2022 Cholesterol in HDL [Mass/Vol] 33 mg/dL >40 [facility] Work Phone: Comment on above: The drugs N-Acetylcy steine and Metamizole may falsely depress this assay. Reference Range HDL <40 mg/dL Low HDL Cholesterol HDL >or= 60 mg/dL High HDL Cholesterol Serum or plasma cholesterol in VLDL measurement (mass/volume)on 05-05-2022 Cholesterol in VLDL [Mass/Vol] 78 mg/dL 5-40 [facility] Work Phone: Serum or plasma creatinine m easurement (mass/volume)on 05-05-2022 Creatinine [Mass/Vol] 1.52 mg/dL 0.70-1.30 [facility] Work Phone: Comment on above: The validity of the calculated GFR & GFRAA in patients over 70 years has not been determined. Clinical correlation is essential. Serum or plasma low density lipoprotein (LDL) cholesterol measurement (mass/volume)on 05-05-2022 Cholesterol in LDL [Mass/Vol] 66 mg/dL 0-130 [facility] Work Phone: Serum or plasma urea nitroge n measurement (mass/volume)on 05-05-2022 Urea nitrogen [Mass/Vol] 16 mg/dL 7-18 [facility] Work Phone: Thin prep Papanicolaou smear with manual screeningon 05-05-2022 Thin prep Papanicolaou smear with manual screening 28 U/L 15-37 [facility] Work Phone: Thin prep Papanicolaou smear with manual screening 7 5-15 [facility] Work Phone: LABORATORYOrdered By: Erum Gaspar on 11-14-2021 Albumin BCP dye [Mass/Vol] 4.1 G/dL Invalid Interpretation Code 3.4 - 4.8 G/dL AO ADM SS Albumin/Globulin [Mass ratio] 1.4 {ratio} Invalid Interpretation Code 1.1 - 2.5 ratio AO ADM SS ALP [Catalytic activity/Vol] 103 U/L Invalid Interpretation Code 40 - 135 U/L AO ADM SS ALT With P-5'-P [Catalytic activity/Vol] 59 U/L Invalid Interpretation Code 16 - 63 U/L AO ADM SS AST With P-5'-P [Catalytic activity/Vol] 38 U/L Invalid Interpretation Code 10 - 40 U/L AO ADM SS Bilirubin [Mass/Vol] 1.0 mg/dL Invalid Interpretation Code 0.2 - 1.0 mg/dL AO ADM SS Calcium [Mass/Vol] 9.0 mg/dL Invalid Interpretation Code 8.4 - 10.2 mg/dL AO ADM SS Chloride [Moles/Vol] 101 mmol/L Invalid Interpretation Code 98 - 107 mmol/L AO ADM SS Cholesterol [Mass/Vol] 179 mg/dL Invalid Interpretation Code 0 - 200 mg/dL AO ADM SS Cholesterol in HDL [Mass/Vol] 37 mg/dL Invalid Interpretation Code 40 - 60 mg/dL AO ADM SS Cholesterol in LDL [Mass/Vol] 68 mg/dL Invalid Interpretation Code 0 - 130 mg/dL AO ADM SS CO2 [Moles/Vol] 25 mmol/L Invalid Interpretation Code 23 - 31 mmol/L AO ADM SS Creatinine [Mass/Vol] 1.52 mg/dL Invalid Interpretation Code 0.70 - 1.30 mg/dL AO ADM SS Electrolyte Balance 13.0 mEq/L Invalid Interpretation Code AO ADM SS Globulin 3.0 G/dL Invalid Interpretation Code AO ADM SS Glucose [Mass/Vol] 126 mg/dL Invalid Interpretation Code 80 - 115 mg/dL AO ADM SS Potassium [Moles/Vol] 4.7 mmol/L Invalid Interpretation Code 3.5 - 5.1 mmol/L AO ADM SS Prostate specific Ag [Mass/Vol] 4.34 ng/mL Invalid Interpretation Code 0.00 - 4.00 ng/mL AO ADM SS Protein [Mass/Vol] 7.1 G/dL Invalid Interpretation Code 6.4 - 8.2 G/dL AO ADM SS Sodium [Moles/Vol] 139 mmol/L Invalid Interpretation Code 136 - 145 mmol/L AO ADM SS Triglyceride [Mass/Vol] 371 mg/dL Invalid Interpretation Code 0 - 150 mg/dL AO ADM SS TSH Qn 2.29 m[IU]/L Invalid Interpretation Code 0.36 - 3.74 mcIU/mL AO ADM SS Urea nitrogen [Mass/Vol] 27 mg/dL Invalid Interpretation Code 7 - 18 mg/dL AO ADM SS Urea nitrogen/Creatinine [Mass ratio] 18 ratio Invalid Interpretation Code 7 - 27 ratio AO ADM SS LABORATORYOrdered By: Héctor Ramirez on 11-14-2021 Basophil, Absolute 0.00 103/mcL Invalid Interpretation Code 0.00 - 0.19 10^3/mcL AO Auto Heme SS Basophils/100 WBC (Bld) 0.7 % Invalid Interpretation Code 0.0 - 2.5 % AO Auto Heme SS Eosinophil, Absolute 0.30 103/mcL Invalid Interpretation Code 0.00 - 0.40 10^3/mcL AO Auto Heme SS Eosinophils/100 WBC (Bld) 5.6 % Invalid Interpretation Code 0.0 - 7.0 % AO Auto Heme SS Erythrocyte distribution width (RBC) [Ratio] 12.4 % Invalid Interpretation Code 11.5 - 14.5 % AO Auto Heme SS Hematocrit (Bld) [Volume fraction] 46.3 % Invalid Interpretation Code 42.0 - 52.0 % AO Auto Heme SS Hemoglobin (Bld) [Mass/Vol] 16.3 G/dL Invalid Interpretation Code 14.0 - 18.0 G/dL AO Auto Heme SS Lymphocyte, Absolute 1.20 103/mcL Invalid Interpretation Code 0.77 - 3.85 10^3/mcL AO Auto Heme SS Lymphocytes/100 WBC (Bld) 21.4 % Invalid Interpretation Code 10.0 - 50.0 % AO Auto Heme SS MCH (RBC) [Entitic mass] 32.9 pg Invalid Interpretation Code 27.0 - 31.2 pg AO Auto Heme SS MCHC (RBC) [Mass/Vol] 35.2 G/dL Invalid Interpretation Code 31.8 - 35.4 G/dL AO Auto Heme SS MCV (RBC) [Entitic vol] 93.5 fL Invalid Interpretation Code 80.0 - 94.0 fL AO Auto Heme SS Monocyte, Absolute 0.90 103/mcL Invalid Interpretation Code 0.15 - 1.00 10^3/mcL AO Auto Heme SS Monocytes/100 WBC (Bld) 15.5 % Invalid Interpretation Code 1.7 - 13.0 % AO Auto Heme SS Neutrophil, Absolute 3.20 103/mcL Invalid Interpretation Code 2.85 - 6.16 10^3/mcL AO Auto Heme SS Neutrophils/100 WBC (Bld) 56.8 % Invalid Interpretation Code 37.0 - 80.0 % AO Auto Heme SS Platelet mean volume (Bld) [Entitic vol] 7.0 fL Invalid Interpretation Code 7.4 - 10.4 fL AO Auto Heme SS Platelets (Bld) [#/Vol] 267 103/mcL Invalid Interpretation Code 130 - 400 10^3/mcL AO Auto Heme SS RBC (Bld) [#/Vol] 4.95 106/mcL Invalid Interpretation Code 4.04 - 6.13 10^6/mcL AO Auto Heme SS WBC (Bld) [#/Vol] 5.70 103/mcL Invalid Interpretation Code 4.60 - 10.80 10^3/mcL AO Auto Heme SS LABORATORYOrdered By: SYSTEM SYSTEM on 11-14-2021 GFR 56 ml/min/1.73sqm Invalid Interpretation Code AO Chemistry S GFR Non- 46 ml/min/1.73sqm Invalid Interpretation Code AO Chemistry S Vital Signs Date Time Vital Sign Value Performing Clinician Facility 11-28-2024 13:57-0500 Heart rate 68 /min DUONG JIMENEZ MD [facility] 11-28-2024 13:57-0500 Respiratory rate 20 /min DUONG JIMENEZ MD [facility] 11-28-2024 13:41-0500 Respiratory rate 20 /min DUONG JIMENEZ MD [facility] 11-28-2024 13:19-0500 Blood Pressure Location DUONG JIMENEZ MD [facility] 11-28-2024 13:19-0500 Blood Pressure Method DUONG JIMENEZ MD [facility] 11-28-2024 13:19-0500 Body temperature 98.6 [degF] DUONG JIMENEZ MD [facility] 11-28-2024 13:19-0500 Diastolic Blood Pressure Non-Invasive 80 mm[Hg] DUONG JIMENEZ MD [facility] 11-28-2024 13:19-0500 Heart rate 72 /min DUONG JIMENEZ MD [facility] 11-28-2024 13:19-0500 Respiratory rate 18 /min DUONG JIMENEZ MD [facility] 11-28-2024 13:19-0500 Systolic Blood Pressure Non-Invasive 133 mm[Hg] DUONG JIMENEZ MD [facility] 03-31-2024 16:35-0400 Body temperature 98.78 [degF] AMARILIS SALGUERO DO [facility] 03-31-2024 16:35-0400 Body weight 95.5 kg AMARILIS SALGUERO DO [facility] 03-31-2024 16:35-0400 Diastolic Blood Pressure Non-Invasive 88 mm[Hg] AMARILIS SALGUERO DO [facility] 03-31-2024 16:35-0400 Heart rate 51 /min AMARILIS SALGUERO DO [facility] 03-31-2024 16:35-0400 Respiratory rate 16 /min AMARILIS SALGUERO DO [facility] 03-31-2024 16:35-0400 Systolic Blood Pressure Non-Invasive 151 mm[Hg] AMARILIS SALGUERO DO [facility] 04-12-2022 15:02-0400 Body height 167.[address] Abiola Leiva Work Phone: [facility] Work Phone: 04-12-2022 15:02-0400 Body mass index (BMI) [Ratio] 34.9 kg/m2 Dr. Abiola Leiva Work Phone: [facility] Work Phone: 04-12-2022 15:02-0400 Body temperature 96 [degF] Dr. Abiola Leiva Work Phone: [facility] Work Phone: 04-12-2022 15:02-0400 Body weight 98.[address] Abiola Leiva Work Phone: [facility] Work Phone: 04-12-2022 15:02-0400 Diastolic blood pressure 80 mm[Hg] Dr. Abiola Leiva Work Phone: [facility] Work Phone: 04-12-2022 15:02-0400 Heart rate 69 /min Dr. Abiola Leiva Work Phone: [facility] Work Phone: 04-12-2022 15:02-0400 Respiratory rate 16 /min Dr. Abiola Leiva Work Phone: [facility] Work Phone: 04-12-2022 15:02-0400 SaO2% (BldA) [Mass fraction] 96 % Dr. Abiola Leiva Work Phone: [facility] Work Phone: 04-12-2022 15:02-0400 Systolic blood pressure 104 mm[Hg] Dr. Abiola Leiva Work Phone: [facility] Work Phone: Encounters Encounter Date Encounter Type Care Provider Facility Start: 03-23-2025 End: 03-23-2025 ambulatory Abiola Leiva Facility:[facility] Start: 11-28-2024 End: 11-28-2024 Emergency department patient visit DUONG JIMENEZ MD [facility] Start: 10-22-2024 End: 10-22-2024 ambulatory Abiola Leiva Facility:[facility] Start: 09-23-2024 ambulatory Abiola Leiva Facilit y:[facility] Start: 07-21-2024 Encounter for preprocedural cardiovascular examination [facility] Start: 07-08-2024 ambulatory Abiola Leiva Facilit y:[facility] Start: 07-07-2024 End: 07-07-2024 ambulatory [facility] Facility:[facility] Start: 07-07-2024 End: 07-07-2024 ambulatory Abiola Leiva Facility:[facility] Start: 03-31-2024 End: 03-31-2024 Emergency department patient visit AMARILIS SALGUERO DO Facility:[facility] Start: 03-31-2024 End: 03-31-2024 Emergency department patient visit AMARILIS SALGUERO DO [facility] Start: 03-21-2024 End: 03-22-2024 ambulatory ABIOLA LEIVA DO Facility:[facility] Start: 03-21-2024 End: 03-21-2024 Patient encounter procedure ABIOLA LEIVA DO [facility] Start: 08-27-2023 End: 08-28-2023 ambulatory ABIOLA LEIVA Facility:[facility] Start: 08-27-2023 End: 08-27-2023 Patient encounter procedure ABIOLA LEIVA DO [facility] Start: 05-05-2022 End: 05-05-[address] Abiola Leiva Work Phone: [facility] Start: 04-12-2022 End: 04-12-[address] Abiola Leiva Work Phone: [facility] Start: 11-14-2021 End: 11-14-2021 Patient encounter procedure ALMA WILLIS [facility] Start: 01-18-2021 End: 01-18-2021 Patient encounter procedure REUBEN AMES [facility] Payers Date Payer Category Payer Self-pay [id number] 2024 Medicare [id number] 2023 Medicare [id number] 1955 Unknown [id number] 2.16.84 [id number] 1955 Unknown [id number] 2.16.8 [id number] 1955 Unknown [id number] 2.16.8 [id number] 1955 Unknown [id number] 2.16.8 [id number] 1955 Unknown [id number] 2.16.8 [id number] Unknown [id number] 2.16.8 [id number] Unknown [id number] 2.16.8 [id number] Unknown [id number] 2.16.8 [id number] Unknown [id number] 2.16.8 [id number] Unknown [id number] 2.16.8 [id number] Unknown [id number] 2.16.8 [id number] Social History Date Type Detail Facility [facility]: [facility] Work Phone: Start: 01-25-2020 [facility] Work Phone: Start: 01-25-2020 [facility] Work Phone: Start: 1955 Sex Assigned At Male [facility] Work Phone: Functional Status Date Assessment Result Facility 11-28-2024 Functional Status Independent Monik Vee [place] 11-28-2024 Functional Status ID band on, Call device within reach, Bed in low position, Wheels locked, Upper/Half-Length side-rails up, Safety level maintained [facility] 03-31-2024 Functional Status Standard Safet y ID band on, Call device within reach, Bed in low position, Wheels locked, Upper/Half-Length side-rails up, Bedside Cart Locked, Safety level maintained [facility] Mental Status Date Assessment Result Facility 11-28-2024 Mental Status Orientation Oriented x 4 [facility] 11-28-2024 Mental Status [facility] 03-31-2024 Mental Status Orientation Oriented x 4 [facility] Clinical Notes 05-31-2022 to 11-28-2024 Note Date & Type Note Facility 11-28-2024 Hospital Discharg e instructions Patient Education 11/28/2024 14:35:43 Influenza (Adult) Influenza (Adult) Influenza is also called the flu. It is a viral illness that affects the air passages of your lungs. It is different from the common cold. The flu can easily be passed from one to person to another. It may be spread through the air by coughing and sneezing. Or it can be spread by touching the sick person and then touching your own eyes, nose, or mouth. The flu starts 1 to 3 days after you are exposed to the flu virus. It may last for 1 to 2 weeks but many people feel tired or fatigued for many weeks afterward. You usually don t need to take antibiotics unless you have a complication. This might be an ear or sinus infection or pneumonia. Symptoms of the flu may be mild or severe. They can include extreme tiredness (wanting to stay in bed all day), chills, fevers, muscle aches, soreness with eye movement, headache, and a dry, hacking cough. Home care Follow these guidelines when caring for yourself at home: Avoid being around cigarette smoke, whether yours or other people s. Acetaminophen or ibuprofen will help ease your fever, muscle aches, and headache. Don t give aspirin to anyone younger than 18 who has the flu. Aspirin can harm the liver. Nausea and loss of appetite are common with the flu. Eat light meals. Drink 6 to 8 glasses of liquids every day. Good choices are water, sport drinks, soft drinks without caffeine, juices, tea, and soup. Extra fluids will also help loosen secretions in your nose and lungs. [id number] cold medicines will not make the flu go away faster. But the medicines may help with coughing, sore throat, and congestion in your nose and sinuses. Don t use a decongestant if you have high blood pressure. Stay home until your fever has been gone for at least 24 hours without using medicine to reduce fever. Follow-up care Follow up with your healthcare provider, or as advised, if you are not getting better over the next week. If you are age 65 or older, talk with your provider about getting a pneumococcal vaccine every 5 years. You should also get this vaccine if you have chronic asthma or COPD. All adults should get a flu vaccine every fall. Ask your provider about this. When to seek medical advice Call your healthcare provider right away if any of these occur: Cough with lots of colored mucus (sputum) or blood in your mucus Chest pain, shortness of breath, wheezing, or trouble breathing Severe headache, or face, neck, or ear pain New rash with fever Fever of 100.4 F (38 C) or higher, or as directed by your healthcare provider Confusion, behavior change, or seizure Severe weakness or dizziness You get a new fever or cough after getting better for a few days [id number] [employer]. [address] [place] [address]. All rights reserved. This information is not intended as a substitute for professional medical care. Always follow your healthcare professional's instructions. Follow Up Care 11/28/2024 13:10:07 With:ABIOLA LEIVA DO Address: [facility] [address] [place] [address] [phone] When:2-4 days [facility] 11-28-2024 Note Discharge Instructions Thank you for allowing [facility] to assist you with your healthcare needs. The following is important discharge information regarding your hospital visit. What to Do Next Instructions from Your Care Team Please follow-up with your primary care provider in the next 2-4 days should your symptoms not start to improve or they worsen. If you develop respiratory distress, labored breathing or any other concerns, you are welcome to return to the emergency department. You can take vxdp-acl-zscotpt cold medications and I will send you with a prescription for an albuterol inhaler to use every 6 hours as needed for shortness of breath. If you find yourself using it more than every 4 hours, please return to the emergency department. No qualifying data available. Post Acute Orders No qualifying data available. You Need to Schedule the Following Appointments Follow Up with ABIOLA LEIVA DO When:Within 2-4 days Where:[facility] [address] [place] [address] [phone] Allergies NKA Medications Please ask your primary doctor or pharmacist before taking any other medication not listed, including over the counter drugs, herbal medications, vitamins and or supplements as they may interact with your home medications. What How Much When Instructions Last Dose New albuterol (albuterol MDI (90 mcg/ inh) CFC free inhalation aerosol) 1 puff(s) by inhalation Every 6 hours as needed for as needed for wheezing Duration: 30 Days Printed Prescription Please take this list to your next doctor s visit. Bring all medications you take, including over the counter medications, herbals and other supplements with you to your doctor s visit. Patients and families are reminded to discard old lists and to update any records with all medication providers or retail pharmacies. Medication Leaflets albuterol inhalation (al BUE ter ol) ProAir Digihaler, ProAir RespiClick, Ventolin HFA What is the most important information I should know about albuterol inhalation? Use only as directed. Tell your doctor if you use other medicines or have other medical conditions or allergies. What is albuterol inhalation? Albuterol inhalers are used in adults and children at least 4 years old to to treat or prevent narrowing and swelling inside the lungs (bronchospasm) that may cause breathing problems. Albuterol inhalers are also used to prevent breathing problems while exercising. Albuterol inhalation solution is used to treat acute bronchospasm attacks in children at least 2 years old with asthma. Albuterol inhalation may also be used for purposes not listed in this medication guide. What should I discuss with my healthcare provider before using albuterol inhalation? You should not use this medicine if you are allergic to albuterol inhalation. Do not use albuterol inhalation powder (ProAir RespiClick or ProAir Digihaler) if you are allergic to lactose or milk proteins. Tell your doctor if you have ever had: heart problems, high blood pressure; a thyroid disorder; seizures; if you have used an MAO inhibitor in the past 14 days, such as isocarboxazid, linezolid, methylene blue injection, phenelzine, or tranylcypromine; diabetes; or low blood levels of potassium. If you are , your name may be listed on a registry to track the effects of albuterol inhalation on the baby. Tell your doctor if you are or plan to become . It is not known whether albuterol inhalation will harm an unborn baby. However, having uncontrolled asthma during may increase the risk of premature , low weight, or eclampsia (dangerously high blood pressure that can lead to medical problems in both mother and baby). The benefit of preventing bronchospasm may outweigh any risks to the baby. Do not allow a young child to use albuterol inhalation without help from an adult. How should I use albuterol inhalation? Follow the directions on your prescription label and read all medication guides or instruction sheets. Use the medicine exactly as directed. Do not use the medicine more often than prescribed. Your dose needs may change if you switch to a different brand, strength, or form of this medicine. Avoid medication errors by using exactly as directed on the label, or as prescribed by your doctor. The effects of albuterol inhalation last about 4 to 6 hours. To prevent exercise-induced bronchospasm, use this medicine 15 to 30 minutes before you exercise. Talk with your doctor if you need to time your dosing around any planned activities. Read and carefully follow any instructions for preparing and using the medicine for the first time and for following doses. Ask your doctor or pharmacist if you do not understand these instructions. Your dose needs may change due to surgery, illness, stress, or a recent asthma attack. Do not change your dose or stop using asthma medication without your doctor's advice. Tell your doctor if your medicine seems to stop working. Call your doctor if your symptoms do not improve, or if they get worse. Keep the cover on your inhaler closed when not in use. Store away from open flame or high heat. Do not puncture or burn an empty canister. Do not take apart an inhaler device, wash, or put any part of your inhaler in water. Follow all storage and cleaning instructions provided with your inhaler. Your pharmacist can provide more information about how to store this medicine. Get your prescription refilled before you run out of medicine completely. Always use the new inhaler device provided. Store unused albuterol solution vials in the foil pouch at room temperature away from moisture, heat and light. Call your pharmacist if the medicine looks cloudy, has changed colors or has particles in it. Albuterol inhalation solution is stable for only a certain number of days or weeks after being removed from the foil pouch. Throw away any medicine not used within that time. Talk to your pharmacist if you have any questions. What happens if I miss a dose? Use the medicine as soon as you can, but skip the missed dose if it is almost time for your next dose. Do not use two doses at one time. What happens if I overdose? Seek emergency medical attention or call the Poison Help line at . An overdose of albuterol can be fatal. Overdose symptoms may include dry mouth, tremors, chest pain, fast heartbeats, nausea, general ill feeling, seizure, feeling light-headed or fainting. What should I avoid while using albuterol inhalation? Avoid using other fast-acting rescue medications or asthma medications with albuterol inhalation unless you doctor tells you to. Avoid getting this medicine in your eyes. What are the possible side effects of albuterol inhalation? Get emergency medical help if you have signs of an allergic reaction: hives, difficult breathing, swelling of your face, lips, tongue, or throat. Albuterol inhalation may increase the risk of asthma-related or hospitalization. Use only the prescribed dose and follow all instructions for safe use. Call your doctor at once if you have: wheezing, choking, or other breathing problems after using this medicine; chest pain, fast heart rate, pounding heartbeats or fluttering in your chest; severe headache, pounding in your neck or ears; high blood sugar--increased thirst, increased urination, dry mouth, fruity breath odor; or low blood potassium--leg cramps, constipation, irregular heartbeats, fluttering in your chest, increased thirst or urination, numbness or tingling, muscle weakness or limp feeling. Common side effects may include: chest pain, fast or pounding heartbeats; pain and burning when you urinate; upset stomach, vomiting; dizziness; tremors or shaking, nervousness; headache, back pain, body aches; or cough, sore throat, sinus pain, runny or stuffy nose. This is not a complete list of side effects and others may occur. Call your doctor for medical advice about side effects. You may report side effects to FDA at 1-403-VXE-2301. What other drugs will affect albuterol inhalation? Tell your doctor about all your other medicines, especially: any other inhaled medicines or bronchodilators such as ipratropium o tiotropium; digoxin; epinephrine; a diuretic ('water pill') an antidepressant--amitriptyline, desipramine, imipramine, doxepin, nortriptyline, and others; a beta diana--atenolol, carvedilol, labetalol, metoprolol, nadolol, nebivolol, propranolol, sotalol, and others; or an MAO inhibitor--isocarboxazid, linezolid, methylene blue injection, phenelzine, tranylcypromine, and others. This list is not complete. Other drugs may affect albuterol inhalation, including prescription and azps-bgj-pcxxjhb medicines, vitamins, and herbal products. Not all possible drug interactions are listed here. Where can I get more information? Your doctor or pharmacist can provide more information about albuterol inhalation. Remember, keep this and all other medicines out of the reach of children, never share your medicines with others, and use this medication only for the indication prescribed. Every effort has been made to ensure that the information provided by [employer]. ('[employer]') is accurate, up-to-date, and complete, but no guarantee is made to that effect. Drug information contained herein may be time sensitive. [employer] information has been compiled for use by healthcare practitioners and consumers in the [place] and therefore [employer] does not warrant that uses outside of the [place] are appropriate, unless specifically indicated otherwise. [employer]'s drug information does not endorse drugs, diagnose patients or recommend therapy. [employer] drug information is an informational resource designed to assist licensed healthcare practitioners in caring for their patients and/or to serve consumers viewing this service as a supplement to, and not a substitute for, the expertise, skill, knowledge and judgment of healthcare practitioners. The absence of a warning for a given drug or drug combination in no way should be construed to indicate that the drug or drug combination is safe, effective or appropriate for any given patient. [facility] does not assume any responsibility for any aspect of healthcare administered with the aid of information [facility] provides. The information contained herein is not intended to cover all possible uses, directions, precautions, warnings, drug interactions, allergic reactions, or adverse effects. If you have questions about the drugs you are taking, check with your doctor, nurse or pharmacist. Copyright [facility]. Version: 09.13. Revision Date: 06/23/2024. Education Materials Influenza (Adult) Influenza is also called the flu. It is a viral illness that affects the air passages of your lungs. It is different from the common cold. The flu can easily be passed from one to person to another. It may be spread through the air by coughing and sneezing. Or it can be spread by touching the sick person and then touching your own eyes, nose, or mouth. The flu starts 1 to 3 days after you are exposed to the flu virus. It may last for 1 to 2 weeks but many people feel tired or fatigued for many weeks afterward. You usually don t need to take antibiotics unless you have a complication. This might be an ear or sinus infection or pneumonia. Symptoms of the flu may be mild or severe. They can include extreme tiredness (wanting to stay in bed all day), chills, fevers, muscle aches, soreness with eye movement, headache, and a dry, hacking cough. Home care Follow these guidelines when caring for yourself at home: Avoid being around cigarette smoke, whether yours or other people s. Acetaminophen or ibuprofen will help ease your fever, muscle aches, and headache. Don t give aspirin to anyone younger than 18 who has the flu. Aspirin can harm the liver. Nausea and loss of appetite are common with the flu. Eat light meals. Drink 6 to 8 glasses of liquids every day. Good choices are water, sport drinks, soft drinks without caffeine, juices, tea, and soup. Extra fluids will also help loosen secretions in your nose and lungs. Vfng-wvd-hwqfish cold medicines will not make the flu go away faster. But the medicines may help with coughing, sore throat, and congestion in your nose and sinuses. Don t use a decongestant if you have high blood pressure. Stay home until your fever has been gone for at least 24 hours without using medicine to reduce fever. Follow-up care Follow up with your healthcare provider, or as advised, if you are not getting better over the next week. If you are age 65 or older, talk with your provider about getting a pneumococcal vaccine every 5 years. You should also get this vaccine if you have chronic asthma or COPD. All adults should get a flu vaccine every fall. Ask your provider about this. When to seek medical advice Call your healthcare provider right away if any of these occur: Cough with lots of colored mucus (sputum) or blood in your mucus Chest pain, shortness of breath, wheezing, or trouble breathing Severe headache, or face, neck, or ear pain New rash with fever Fever of 100.4 F (38 C) or higher, or as directed by your healthcare provider Confusion, behavior change, or seizure Severe weakness or dizziness You get a new fever or cough after getting better for a few days [id number] [employer]. [address] [place] [address]. All rights reserved. This information is not intended as a substitute for professional medical care. Always follow your healthcare professional's instructions. Additional Information VACCINATE! IT SAVES LIVES! Members of the community who have not yet received the COVID-19 vaccine and would like to receive it can visit one of [facility] vaccine clinics. There are many vaccine clinic locations within the [facility]. For locations and available times, please visit [email or web address].[email or web address]. gov/. It is important to note that some COVID mobile vaccine clinics are held outdoors and may be canceled in rainy or stormy conditions. To learn more about pediatric vaccinations (ages 5-11), we invite you to visit the [facility] webpage. [email or web address].[email or web address]/p ages/2022-Cyojf-Mivuxkgfghw-Freq sidnhk-Ovlhs-Jogducyqk.html To learn more about the COVID-19 vaccine, we invite you to visit the CDC website for a list of frequently asked questions. https://www.cdc.gov/coronavirus/ 2019-ncov/vaccines/faq.html [facility] Patient Portal Access Instructions: Stay connected with your healthcare team and access your personal medical information anytime with the [employer] Patient Portal. If you would like a full copy of your medical records please contact the [facility] Medical Records Department Sunday through Sunday between 8a.m. and 4:30p.m. Please follow the directions below to access the portal: 1.Access the email account you provided upon registration to the [facility].2.Look for an invitation email from [facility].3.Open the email and access the invitation link: Accept Invitation to [facility]4.Fill in the required andrews to create your account. Sign into [email or web address] with your username and password that you created in the above steps to stay up to date. You can then view a summary of results, a summary of your visits, and the ability to download your summaries to your computer or send the information securely to a physician. Remember that your healthcare information is confidential, so carefully consider who you will allow to register on the [employer] Patient Portal for access to your information. You can also access the [employer] Patient Portal on the [employer]. Simply click on Health Records under Health Data and then click on the [employer] logo. HOW TO SAFELY DISPOSE OF PRESCRIPTION MEDICATIONS Please use one of the following methods to safely dispose of your unused medications. 1.Use a drug disposal kit: the drug disposal pouch allows you to safely discard your old and unused drugs. Ask your nurse to give you one when you are discharged.2.Visit a local take-back location: Many local pharmacies and police departments have programs that collect old and unwanted prescription drugs. Call your local pharmacy or go to http://[employer].MetGen/5Y2Yf0v to find one close to you.3.Make use of household items: Use cat litter or old coffee grounds to dispose medications if other options are not available. Mix your drugs with these household products, seal them in an airtight container and throw it into the garbage. Call [facility]: [phone] to be sure your drugs can be disposed of in this way. Some medicines may require a different approach.4.Never flush your medications down the toilet. IF YOU HAVE BEEN PRESCRIBED AN OPIOIDS FOR PAIN If you have been prescribed an opioid (such as hydrocodone, oxycodone or morphine), it is critical to understand the possible side effects and risks of opioid pain medications. Even when taken as directed, opioids can have several side effects including: Tolerance, meaning you might need to take more of a medication for the same pain relief. Nausea, vomiting and/or constipation. Sleepiness, dizziness, dry mouth, confusion, depression or itching. Physical dependence, meaning you have withdrawal symptoms when a medication is stopped ? this can develop within a few days. KNOW YOUR RESPONSIBILITIES It is important to know exactly how much and how often to take the opioid pain medications you are prescribed. Never take opioids in higher amounts or more often than prescribed. Do not combine opioids with alcohol or other drugs that cause drowsiness, such as benzodiazepines, also known as benzos, including diazepam and alprazolam, muscle relaxants or sleep aids. Never sell or share prescription opioids. This is illegal. Store opioids in a secure place and out of reach of others (including children, family, friends and visitors). The last page(s) of this document has been signed and retained as a CHART COPY Signatures Patient Education Materials Influenza (Adult) Medication Leaflets albuterol inhalation My discharge plan and instructions have been reviewed and explained to me and I,QUENTIN GRIFFIN understand my current condition and have read and understand these discharge instructions. I have received a written copy of the plan/instructions. If I have questions, I am aware that I should contact my doctor. Patient/Publication Designer Signature: Date/Time: Relationship to Patient: Witness Name/Signature: Date/Time: [facility] 11-28-2024 Note Exam Date Time Procedure Performing Provider Status 11/28/24 2:23 PM XR Chest 1 View JU GRIMM MD; Xuan h (Verified) [id number] ORIGINAL EXAMINATION: ONE XRAY VIEW OF THE CHEST 11/28/2024 2:30 pm COMPARISON: None. HISTORY: ORDERING SYSTEM PROVIDED HISTORY: Reason for Exam: SOB/cough/fever FINDINGS: Low lung volumes and hypoventilatory changes. No overt edema. Questionable vague left retrocardiac opacification obscuring the left hemidiaphragm. No pleural effusion. No pneumothorax. No acute fracture. IMPRESSION: Questionable vague left retrocardiac opacification obscuring the left hemidiaphragm, this could be related to prominent pericardial fat versus a left basilar infiltrate. Interpreted by: Ju Grimm Preliminary Report By: Ju Grimm Electronically signed By Ju Grimm Dictated Date: 11/28/2024 2:32:37 PM Prelim Date: 11/28/2024 2:35:00 PM Sign Date: 11/28/2024 2:35:00 PM Ordering Provider: FADI BREWER [facility]05-20-2024 Hospital Discharge instructions Patient Education 03/31/2024 17:38:04 Earache Without Infection (Adult) Earache, No Infection (Adult) Earaches can happen without an infection. This occurs when air and fluid build up behind the eardrum causing a feeling of fullness and discomfort and reduced hearing. This is called otitis media witheffusion (OME) or serous otitis media. It means there is fluid in the middle ear. It is not the same as acute otitis media, which is typically from infection. OME can happen when you have a cold if congestion blocks the passage that drains the middle ear. This passage is called the eustachian tube. OME may also occur with nasal allergies or after a bacterial middle ear infection. The pain or discomfort may come and go. You may hear clicking or popping sounds when you chew or swallow. You may feel that your balance is off. Or you may hear ringing in the ear. It often takes from several weeks up to 3 months for the fluid to clear on its own. Oral pain relievers and ear drops help if there is pain. Decongestants and antihistamines sometimes help. Antibiotics don't help since there is no infection. Your doctor may prescribe a nasal spray to help reduce swelling in the nose and eustachian tube. This can allow the ear to drain. If your OME doesn't improve after 3 months, surgery may be used to drain the fluid and insert a small tube in the eardrum to allow continued drainage. Because the middle ear fluid can become infected, it is important to watch for signs of an ear infection which may develop later. These signs include increased ear pain, fever, or drainage from the ear. Home care The following guidelines will help you care for yourself at home: You may use vxtd-dim-byqwcrw medicine as directed to control pain, unless another medicine was prescribed. If you have chronic liver or kidney disease or ever had a stomach ulcer or GI bleeding, talkwith your doctor before using these medicines. Aspirin should never be used in anyone under 18 years of age who is ill with a fever. It may cause severe liver damage. You may use gbtw-elb-iqeyrxp decongestants such as phenylephrine or pseudoephedrine. But they are not always helpful. Don't use nasal spray decongestants more than 3 days. Longer use can make congestion worse. Prescription nasal sprays from your doctor don't typically have those restrictions. Antihistamines may help if you are also having allergy symptoms. You may use medicines such as guaifenesin to thin mucus and promote drainage. Follow-up care Follow up with your healthcare provider or as advised if you are not feeling better after 3 days. When to seek medical advice Call your healthcare provider right away if any of the following occur: Your ear pain gets worse or does not start to improve Fever of 100.4 F (38 C) or higher, or as directed by your healthcare provider Fluid or blood draining from the ear Headache or sinus pain Stiff neck Unusual drowsiness or confusion [id number] [employer] [place]. [address] [place] [address]. All rights reserved. This information is not intended as a substitute for professional medical care. Always follow yourhealthcare professional's instructions. 03/31/2024 17:37:58 Understanding Hearing Loss Understanding Hearing Loss As you age, some hearing loss is normal. But long-term exposure to loud noise can speed up the loss. You lose more than the ability to hear how loud a sound is. You also lose the ability to hear certain types of sounds. For example, you might not be able to hear some of the high-pitched sounds of achild's voice. Normal loss With aging, tiny hair cells in the inner ear undergo changes. Nerve cells, also part of the inner ear, can also be affected. This is called presbycusis. Most people don't notice normal hearing loss until their middle years. Others might not notice it until late in their lives. It's most often a slow and painless process. Accelerated loss Exposure to loud noise may cause brief hearing loss and ringing in your ears called tinnitus. If your exposure was short, you may recover. But long-term exposure day after day can affect your hearingfor life. Noise hurts more than your hearing Did you know that loud noises can affect your whole body? Loud noises can: Raise blood pressure Disrupt sleep patterns Cause muscle strain Harm digestion [id number] [employer] [place]. [address] [place] [address], [place] [address]. All rights reserved. This information is not intended as a substitute for professional medical care. Always follow yourhealthcare professional's instructions. Follow Up Care 03/31/2024 16:33:54 With:ALMA GONZALEZ DO Address: [address] [place] [phone] When:2-4 days [facility] 05-20-2024 Emergency department Discharge summary Discharge Instructions Thank you for allowing [facility] to assist you with your healthcare needs. The following is importantdischarge information regarding your hospital visit. What to Do Next Instructions from Your Care Team No qualifying data available. Post Acute Orders No qualifying data available. You Need to Schedule the Following Appointments Follow Up with ALMA GONZALEZ DO When: When:Within 2-4 days Where:[address] [place] [phone] Allergies NKA Medications Please ask your primary doctor or pharmacist before taking any other medication not listed, including over the counter drugs, herbal medications, vitamins and or supplements as they may interact withyour home medications. Please take this list to your next doctor s visit. Bring all medications you take, including over the counter medications, herbals and other supplements with you to your doctor s visit. Patients and families are reminded to discard old lists and to update any records with all medication providers or retail pharmacies. Education Materials Earache, No Infection (Adult) Earaches can happen without an infection. This occurs when air and fluid build up behind the eardrum causing a feeling of fullness and discomfort and reduced hearing. This is called otitis media witheffusion (OME) or serous otitis media. It means there is fluid in the middle ear. It is not the same as acute otitis media, which is typically from infection. OME can happen when you have a cold if congestion blocks the passage that drains the middle ear. This passage is called the eustachian tube. OME may also occur with nasal allergies or after a bacterial middle ear infection. The pain or discomfort may come and go. You may hear clicking or popping sounds when you chew or swallow. You may feel that your balance is off. Or you may hear ringing in the ear. It often takes from several weeks up to 3 months for the fluid to clear on its own. Oral pain relievers and ear drops help if there is pain. Decongestants and antihistamines sometimes help. Antibiotics don't help since there is no infection. Your doctor may prescribe a nasal spray to help reduce swelling in the nose and eustachian tube. This can allow the ear to drain. If your OME doesn't improve after 3 months, surgery may be used to drain the fluid and insert a small tube in the eardrum to allow continued drainage. Because the middle ear fluid can become infected, it is important to watch for signs of an ear infection which may develop later. These signs include increased ear pain, fever, or drainage from the ear. Home care The following guidelines will help you care for yourself at home: You may use ftey-vib-wihfgph medicine as directed to control pain, unless another medicine was prescribed. If you have chronic liver or kidney disease or ever had a stomach ulcer or GI bleeding, talkwith your doctor before using these medicines. Aspirin should never be used in anyone under 18 years of age who is ill with a fever. It may cause severe liver damage. You may use xyvq-uco-xuxxvtr decongestants such as phenylephrine or pseudoephedrine. But they are not always helpful. Don't use nasal spray decongestants more than 3 days. Longer use can make congestion worse. Prescription nasal sprays from your doctor don't typically have those restrictions. Antihistamines may help if you are also having allergy symptoms. You may use medicines such as guaifenesin to thin mucus and promote drainage. Follow-up care Follow up with your healthcare provider or as advised if you are not feeling better after 3 days. When to seek medical advice Call your healthcare provider right away if any of the following occur: Your ear pain gets worse or does not start to improve Fever of 100.4 F (38 C) or higher, or as directed by your healthcare provider Fluid or blood draining from the ear Headache or sinus pain Stiff neck Unusual drowsiness or confusion [employer] [place]. [address] [place] [address]. All rights reserved. This information is not intended as a substitute for professional medical care. Always follow yourhealthcare professional's instructions. Understanding Hearing Loss As you age, some hearing loss is normal. But long-term exposure to loud noise can speed up the loss. You lose more than the ability to hear how loud a sound is. You also lose the ability to hear certain types of sounds. For example, you might not be able to hear some of the high-pitched sounds of achild's voice. Normal loss With aging, tiny hair cells in the inner ear undergo changes. Nerve cells, also part of the inner ear, can also be affected. This is called presbycusis. Most people don't notice normal hearing loss until their middle years. Others might not notice it until late in their lives. It's most often a slow and painless process. Accelerated loss Exposure to loud noise may cause brief hearing loss and ringing in your ears called tinnitus. If your exposure was short, you may recover. But long-term exposure day after day can affect your hearingfor life. Noise hurts more than your hearing Did you know that loud noises can affect your whole body? Loud noises can: Raise blood pressure Disrupt sleep patterns Cause muscle strain Harm digestion [employer] [place]. [address] [place] [address]. All rights reserved. This information is not intended as a substitute for professional medical care. Always follow yourhealthcare professional's instructions. Additional Information VACCINATE! IT SAVES LIVES! Members of the community who have not yet received the COVID-19 vaccine and would like to receive it can visit one of [facility] vaccine clinics. There are many vaccine clinic locations within the [facility]. For locations and available times, please visit www.gettheshot.coronavirus.[place].gov/. It is important to note that some COVID mobile vaccine clinics are held outdoors and may be canceled in rainy or stormy conditions. To learn more about pediatric vaccinations (ages 5-11), we invite you to visit the [facility] webpage. https://www.[email or web address].org/pages/[email or web address]-Iltyu-Mrhxatypluz-Ramzpgkfeo-Rxikm-Jnb stions.htmlTo learn more about the COVID-19 vaccine, we invite you to visit the CDC website for a list of frequently asked questions. https://www.cdc.gov/coronavirus/2019-ncov/vaccines/faq.html [facility] Patient Portal Access Instructions: Stay connected with your healthcare team and access your personal medical information anytime with the [facility] Patient Portal. If you would like a full copy of your medical records please contact the [facility] Medical Records Department Sunday through Sunday between 8a.m. and 4:30p.m. Please follow the directions below to access the portal: 1.Access the email account you provided upon registration to the [facility].2.Look for an invitation email from [facility].3.Open the email and access the invitation link: Accept Invitation to [facility]4.Fill in the required andrews to create your account. Sign into [email or web address] with your username and password that you created in the above steps to stay up to date. You can then view a summary of results, a summary of your visits, and the ability to download your summaries to your computer or send the information securely to a physician. Remember that your healthcare information is confidential, so carefully consider who you will allow to register on the [facility] Patient Portal for access to your information. You can also access the [facility] Patient Portal on the [employer] eduard. Simply click on Health Records under [employer] and then click on the [employer] logo. HOW TO SAFELY DISPOSE OF PRESCRIPTION MEDICATIONS Please use one of the following methods to safely dispose of your unused medications. 1.Use a drug disposal kit: the drug disposal pouch allows you to safely discard your old and unuseddrugs. Ask your nurse to give you one when you are discharged.2.Visit a local take-back location: Many local pharmacies and police departments have programs that collect old and unwanted prescriptiondrugs. Call your local pharmacy or go to http://Mobile Armor.MetGen/7D6Gk5g to find one close to you.3.Make use of household items: Use cat litter or old coffee grounds to dispose medications if other options arenot available. Mix your drugs with these household products, seal them in an airtight container andthrow it into the garbage. Call [facility]: [phone] to be sure your drugs can be disposed of in this way. Some medicines may require a different approach.4.Never flush your medications down the toilet. IF YOU HAVE BEEN PRESCRIBED AN OPIOIDS FOR PAIN If you have been prescribed an opioid (such as hydrocodone, oxycodone or morphine), it is critical to understand the possible side effects and risks of opioid pain medications. Even when taken as directed, opioids can have several side effects including: Tolerance, meaning you might need to take more of a medication for the same pain relief. Nausea, vomiting and/or constipation. Sleepiness, dizziness, dry mouth, confusion, depression or itching. Physical dependence, meaning you have withdrawal symptoms when a medication is stopped ? this can develop within a few days. KNOW YOUR RESPONSIBILITIES It is important to know exactly how much and how often to take the opioid pain medications you are prescribed. Never take opioids in higher amounts or more often than prescribed. Do not combine opioids with alcohol or other drugs that cause drowsiness, such as benzodiazepines, also known as benzos,including diazepam and alprazolam, muscle relaxants or sleep aids. Never sell or share prescriptionopioids. This is illegal. Store opioids in a secure place and out of reach of others (including children, family, friends and visitors). The last page(s) of this document has been signed and retained as a CHART COPY Signatures Patient Education Materials Earache Without Infection (Adult) Understanding Hearing Loss Medication Leaflets My discharge plan and instructions have been reviewed and explained to me and I,QUENTIN GRIFFIN understand my current condition and have read and understand these discharge instructions. I have received a written copy of the plan/instructions. If I have questions, I am aware that I should contact my doctor. Patient/Publication Designer Signature: Date/Time: Relationship to Patient: Witness Name/Signature: Date/Time: [facility]2022 Influenza virus A and B RNA and SARS-CoV-2 (COVID-19) N gene panel YISSEL+probe (Resp)COVID 19 RESULT: SARS-CoV-2 (Agent of COVID-19) Not Detected by RT-PCR or equivalent method. ayush PIWR-GiR[employer] (SUZI)_EUA This test was developed and its performance characteristics determined by [facility] [place]. This test has been authorized by FDA under an Emergency Use Authorization (EUA). This test has been validated in accordance with the FDA's Guidance Document Policy for DiagnosticsTesting in Laboratories Certified to Perform High Complexity Testing under CLIA prior to Emergency use Authorization for Coronavirus Disease 2019 during the Public Health Emergency issued on January 10, 2020. Test performed by [facility], [facility] Pathology and Laboratory Medicine [place], [address] [place] [address]. INFLUENZA A PCR: Negative for Influenza A by RT-PCR INFLUENZA B PCR: Negative for Influenza B by RT-PCRFisher-Titus Medical CenterComment on above: Performed By: #### [id number] #### [facility] CLIA [id number] [address] [place] [address] OF [id number] NoteHNO ID: [id number] Author: Gaby Alfred APRN.GEOSPATIAL DEVELOPER Service: ? Author Type: Nurse Practitioner Type: Progress Notes Filed: 05/31/2022 6:05 PM Note Text: Subjective The history is provided by the patient. No language teacher was used. HPI Quentin Griffin is a 66 year old male who presents today for CC of headache, body aches, fatigue since Sunday. He has used naproxen with short term relief. He is vaccinated for covid. He was at a restaurant on Sunday and symptoms started on Sunday, no known exposure to illness or covid BP 128/80 Pulse 70 Temp 36.7 ?C (98 ?F) Resp 19 Wt 97.5 kg (215 lb) SpO2 96% BMI 33.67 kg/m? 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 Negative for fever. HENT: Negative for congestion, ear pain, sinus pain and sore throat. Respiratory: Negative for cough, sputum production, shortness of breath and wheezing. Cardiovascular: Negative for chest pain. Musculoskeletal: Positive for myalgias. Neurological: Positive for headaches. Objective Physical Exam Vitals and nursing note reviewed. HENT: Head: Normocephalic and atraumatic. Right Ear: Tympanic membrane, ear canal and external ear normal. Left Ear: Tympanic membrane, ear canal and external ear normal. Nose: No mucosal edema or rhinorrhea. Right Sinus: No maxillary sinus tenderness or frontal sinus tenderness. Left Sinus: No maxillary sinus tenderness or frontal sinus tenderness. Mouth/Throat: Pharynx: Uvula midline. No oropharyngeal exudate or posterior oropharyngeal erythema. Tonsils: No tonsillar abscesses. Cardiovascular: Rate and Rhythm: Normal rate and regular rhythm. Heart sounds: Normal heart sounds. Pulmonary: Effort: Pulmonary effort is normal. Breath sounds: Normal breath sounds. No decreased breath sounds, wheezing, rhonchi or rales. Lymphadenopathy: Head: Right side of head: No submental, submandibular, tonsillar or preauricular adenopathy. Left side of head: No submental, submandibular, tonsillar or preauricular adenopathy. Cervical: No cervical adenopathy. Right cervical: No superficial cervical adenopathy. Left cervical: No superficial cervical adenopathy. ASSESSMENT/PLAN: 1. Suspected COVID-19 virus infection - ICD9: V01.79, ICD10: Z20.822 Possible viral illness Home isolation Testing ordered Comfort measures discussed - see patient instructions. When to seek higher level of care Notified in 24-48 hours with results, available [facility] - COVID WITH FLUA+B, ROUTINE Diagnosis and treatment plan were discussed and questions were answered to the patient's satisfaction. Pt acknowledged understanding of concepts and follow up plan. Specific signs and symptoms that would indicate the need for higher level of care were discussed in detail warranting prompt ER evaluation. Gaby Alfred APRN.CNPFisher-Titus Medical CenterEvaluation + Plan note No data available for this section [facility] Evaluation note* Diagnosis Onset Date Resolution Status [id number] chronic Depressive disorder chronic Fibromyositis [facility] Work Phone: Hospital Discharge instructions No data available for this section [facility] Progress note No data available for this section [facility] Summary Purpose Family History No Family History Records Found Relationship Condition Age at Onset Recorded Date/T bear grandmother Cardiac disease Unknown uncle Diabetes mellitus Unknown father Disorder of liver Unknown mother Alzheimer's disease Unknown son Malignant neoplasm of colon Unknown Advance Directives No Advanced Directives Records Found Advance Directive Response Recorded Date/ Time Living Will No November 18 1:33pm Power of Spinning Frame Changer No November 18 021 1:33pm Chief Complaint and Reason for Visit Chief Complaint FOLLOW UP Reason for Visit [id number] Depressive disorder Fibromyositis Additional Source Comments (unrecognized sect ion and content) No Status Records FoundNo Status Records FoundNo Status Records FoundNo Status Records FoundNo Status Records Found INFORMATION SOURCE (unrecogn ized section and content) DATE CREATED AUTHOR 01/30/2021 [facility] DATE CREATED AUTHOR AUTHOR'S ORGANIZ ATION 06/03/2022 [facility] DATE CREATED AUTHOR AUTHOR'S ORGANIZ ATION 04/07/2024 [facility] ([place]) DATE CREATED AUTHOR AUTHOR'S ORGANIZ ATION 12/01/2024 [facility] DATE CREATED AUTHOR AUTHOR'S ORGANIZ ATION 03/24/[address] [facility] Goals (unrecognized section and content) Goals may be documented in a n alternate section Patient Care team informatio n (unrecognized section and content) Care Team Personnel Name: ABIOLA LEIVA DO Member Role: Primary Care Physician Address: Address: [place] [phone] Care Team Personnel Name: ABIOLA LEIVA DO Member Role: Primary Care Physician Address: Address: [address] [place] [id number] Care Team Personnel Name: ABILOA LEIVA DO Member Role: Primary Care Physician Address: Address: [address] [place] [id number] Care Team Personnel Name: ABIOLA LEIVA DO Member Role: Primary Care Physician Address: [address] [place] [id number] Telecom: FOR RECORDS PERTAINING TO PATIENTS WHO ARE OR HAVE BEEN ENROLLED IN A CHEMICAL DEPENDENCY/SUBSTANCEABUSE PROGRAM, SOME INFORMATION MAY BE OMITTED. This clinical summary was aggregated from multiple sources. Caution should be exercised in using it in the provision of clinical care. This summary normalizes information from multiple sources, and as a consequence, information in this document may materially change the coding, format and clinical context of patient data. In addition, data may be omitted in some cases. CLINICAL DECISIONS SHOULD BE BASED ON THE PRIMARY CLINICAL RECORDS. [facility]. provides no warranty or guarantee of the accuracy or completeness of information in this document.
== END | disposition home or self-care (01) ==
PROVIDERS: PCP Family Medicine; Referring Provider Orthopaedic Surgery Sports Medicine; Visit Provider Orthopaedic Surgery Sports Medicine
DX: G56.21 Lesion of ulnar nerve, right upper limb (principal)
CPT/HCPCS: 95886; 95909